=== PATIENT | male | born 1950 | race Caucasian/White ===

== ENCOUNTER 2024-10-04 21:28 | Observation (INO) ==
--- NOTE | 2024-10-04 21:41 | Emergency Department Note ---
ED Visit Note I was consulted by the Advanced Practice Provider, Leora Santiago PA-C. I performed a substantive portion of the visit. This includes aspects of: History: Patient is a 74-year-old male presenting with chest pain. Patient reports he was eating dinner when he suddenly felt lightheaded and dizzy and short of breath. Patient is visiting from [place] for a birthday dinner for his . He states he had sudden onset of chest pain and shortness of breath and did not feel well. He states it felt similar to his previous heart attack in which she had an LAD stent placed. MDM: - Laboratory workup interpreted by myself showed slight leukocytosis (WBC 11.64); hypokalemia (K 2.9); elevated creatinine (Cr 1.43 - unknown baseline); normal troponin; normal lipase; elevated TSH with normal T4 - EKG obtained at 23:24 interpreted by myself showed normal sinus rhythm. Rate 82 bpm. QT 396. No acute ischemic changes. - Viral respiratory panel negative - CXR negative for pneumonia, per my interpretation - CTA chest negative for PE. - Patient given 4 mg IV zofran and 1g IV acetaminophen on arrival to ER. Given 324 mg PO aspirin. Given 40 mEq PO potassium for electrolyte replacement. - Patient to be admitted to hospitalist service for further evaluation and management. .
[2024-10-04 22:00] LABS: iSTAT Creatinine 1.6 mg/dl (0.6-1.3); iSTAT Hemoglobin 14.6 g/dl (14.0-18.0); iSTAT Ionized Calcium 1.05 mmol/l (1.12-1.32); iSTAT Potassium 2.9 mmol/L (3.3-5.0)
--- NOTE | 2024-10-04 22:00 | Emergency Department Note ---
History of Present Illness General Chief complaint: Cardiac Assessment Stated complaint: Dizziness, Nausea, SOB History of Present Illness This 74-year-old male with a history coronary disease visiting from [place] to have dinner at the chronic he has with his for his 74th birthday presents ER complaining of chest pain, shortness of breath and not feeling right. He state symptoms feel similar to when he needed his stents for his LAD lesion. Patient denies fever, chills, cough, congestion, numbness, tingling, localized weakness. Home Medications Medication Instructions Recorded Confirmed Type amlodipine 5 mg-benazepril 40 mg 1 cap PO HS 10/04/24 10/04/24 History capsule aspirin 81 mg tablet 81 mg PO DAILY 10/04/24 10/04/24 History carvedilol 3.125 mg tablet 3.125 mg PO 2XD 10/04/24 10/04/24 History ezetimibe 10 mg tablet 10 mg 1XD 10/04/24 10/04/24 History pantoprazole 40 mg tablet,delayed 40 mg PO DAILY 10/04/24 10/04/24 History release rosuvastatin 40 mg tablet 40 mg HS 10/04/24 10/04/24 History triamterene 75 1 tab PO DAILY 10/04/24 10/04/24 History mg-hydrochlorothiazide 50 mg tablet Past Med/Surg History Problem List (Updated 10/04/24 @ 23:43 by Leora Santiago PA-C) Hypokalemia (Acute) Atypical chest pain (Acute) Social History Smoking Status: Never smoker Feels Safe at Home: Yes Review of Systems A total of 10 systems reviewed and were otherwise negative Physical Exam Vital Signs Vital Signs - 24 hr 10/04/24 21:35 10/04/24 21:35 10/04/24 21:35 Temperature 36.6 C Temperature Source Oral Pulse Rate 74 78 Pulse Rate [Apical] Respiratory Rate 14 Respiratory Effort / Characteristics Respiratory Depth Normal Respiratory Pattern Blood Pressure 157/97 H Blood Pressure [Right Arm] Blood Pressure Mean 117 Blood Pressure Mean [Right Arm] Blood Pressure Position [Right Arm] Pulse Oximetry 98 Oxygen Delivery Method Room Air Room Air Sepsis Recent Fever Within 48 Hours No Sepsis New/Unexplained Change in Mental Status No Sepsis Action Taken by Nursing No Action Required 10/04/24 22:19 10/04/24 23:27 Temperature Temperature Source Pulse Rate Pulse Rate [Apical] 83 86 Respiratory Rate 20 18 Respiratory Effort / Characteristics Non-Labored Spontaneous Respiratory Depth Normal Respiratory Pattern Regular Blood Pressure Blood Pressure [Right Arm] 134/99 141/84 H Blood Pressure Mean Blood Pressure Mean [Right Arm] 110 103 Blood Pressure Position [Right Arm] Semi-fowlers Pulse Oximetry 98 93 Oxygen Delivery Method Room Air Room Air Sepsis Recent Fever Within 48 Hours Sepsis New/Unexplained Change in Mental Status Sepsis Action Taken by Nursing VITALS: Vitals are noted on the nurse's note and reviewed by myself. Vital signs stable. GENERAL: White male, in no acute distress, nondiaphoretic, well-developed well- nourished. SKIN: Capillary reflex less than 2 seconds. HEENT: Normocephalic. PERRLA. EOMI. Nares patent. Mucous membranes moist. Neck is supple without nuchal rigidity. HEART: Regular rate and rhythm LUNGS: Clear to auscultation bilaterally without wheezes, rales or rhonchi. No retractions or accessory muscle use. ABDOMEN: Positive bowel sounds x 4. Normal tympanic percussion. Soft, nontender, without masses or organomegaly. Garcia sign negative. No guarding or rebound tenderness. no CVA tenderness MUSCULOSKELETAL: No gross musculoskeletal defects. NEURO: Patient was alert and oriented to person place and time. No focal neurological deficits. Course Administered Medications Discontinued Medications Aspirin (Aspirin Chew 324 Mg) 324 mg PO NOW STA Stop: 10/04/24 23:17 Last Admin: 10/04/24 23:25 Dose: 324 mg Documented By: Acetaminophen (Ofirmev) 1,000 mg in 100 mls @ 400 mls/hr IV NOW STA Stop: 10/04/24 22:20 Last Infusion: 10/04/24 23:24 Dose: Infused Documented By: Admin: 10/04/24 22:16 Dose: 400 mls/hr Documented By: YESENIA Ioversol (Optiray 320 125ml) 115 ml IV ONCE ONE Stop: 10/04/24 22:45 Last Admin: 10/04/24 22:44 Dose: 115 ml Documented By: RICARDO Ondansetron HCl (Ondansetron Inj 2 Mg/Ml 2 Ml Vial) 4 mg IV NOW STA Stop: 10/04/24 21:41 Last Admin: 10/04/24 22:12 Dose: 4 mg Documented By: BMK Potassium Chloride (Potassium Chloride Crtab 20 Meq Tabcr) 40 meq PO NOW STA Stop: 10/04/24 22:32 Last Admin: 10/04/24 23:24 Dose: 40 meq Documented By: Medical Decision Making Medical Records Attestation: I reviewed the patient's medical records. Home Medications Current Medication List: was personally reviewed by me Laboratory Data Attestation: I reviewed the patient's lab results. 10/04/24 21:30 10/04/24 22:18 Lab Results 10/04/24 10/04/24 10/04/24 Range/Units 21:30 21:48 21:56 WBC 11.64 H (4.8-10.8) K/ul RBC 4.79 (4.70-6.10) M/uL Hgb 15.4 (14.0-18.0) g/dl POC Hgb 14.6 (14.0-18.0) g/dl Hct 43.0 (42.0-52.0) % POC Hct 43 (42-52) % MCV 89.8 (80.0-100.0) fL MCH 32.2 (25.0-34.0) pg MCHC 35.8 (32.0-36.0) g/dL RDW Std Deviation 39.9 (36.4-46.3) fL RDW Coeff of [place] 12.3 (11.5-14.5) % Plt Count 184 (130-400) K/uL MPV 8.9 L (9.4-12.4) fL Immature Gran % (Auto) 0.3 % Neut % (Auto) 49.8 % Lymph % (Auto) 39.7 % Parke % (Auto) 8.4 % Eos % (Auto) 1.5 % Baso % (Auto) 0.3 % Neut # (Auto) 5.78 (1.40-6.50) K/uL Lymph # (Auto) 4.62 H (1.20-3.40) K/uL Parke # (Auto) 0.98 H (0.11-0.59) K/uL Eos # (Auto) 0.18 (0.00-0.50) K/uL Baso # (Auto) 0.04 (0.00-0.20) K/uL Immature Gran # (Auto) 0.04 (0.01-0.20) K/uL POC Sodium 135 (135-144) mmol/L Sodium 134 L (136-145) mmol/L POC Potassium 2.9 L (3.3-5.0) mmol/L Potassium TNP POC Chloride 98 L (101-112) mmol/L Chloride 97 L (98-107) mmol/L Carbon Dioxide 25 (21-32) mmol/L POC Total CO2 23 L (24-31) mmol/L Anion Gap 12 H (3-11) POC Anion Gap 19.0 (16-25) mmol/L POC BUN 27 H (7-18) mg/dl BUN 27 H (6-23) mg/dl Creatinine 1.43 H (0.6-1.4) mg/dl POC Creatinine 1.6 H (0.6-1.3) mg/dl Est Cr Clr Drug Dosing 51.9 ml/min eGFR 51.10 BUN/Creatinine Ratio 18.9 (10-20) Glucose 134 H (70-99(Fasting)) mg/dl POC Glucose (other) 139 H (70-99) mg/dl Calcium 9.4 (8.6-10.3) mg/dl POC Ioniz Calcium Yaima 1.05 L (1.12-1.32) mmol/l Magnesium 2.2 (1.7-2.4) mg/dl Total Bilirubin 0.5 (0.2-1.0) mg/dl AST TNP ALT 24 (7-52) U/L Alkaline Phosphatase 39 (34-104) U/L Troponin I High Sens 5.7 (0-20) pg/ml B-Natriuretic Peptide (0-100) pg/ml Total Protein 6.7 (6.0-8.3) gm/dl Albumin 4.2 (3.4-5.0) gm/dl Globulin 2.5 (2.5-4.0) gm/dl Albumin/Globulin Ratio 1.7 (0.9-2) Lipase 46 (11-82) U/L TSH 4.541 H (0.300-4.500) uIu/ml Free T4 1.33 (0.61-1.60) ng/dl Adenovirus (PCR) Not Detected (NotDetected) B. pertussis DNA (PCR) Not Detected (NotDetected) B.parapertussis DNA PCR Not Detected (NotDetected) C. pneumoniae DNA (PCR) Not Detected (NotDetected) Coronavirus OC43 (PCR) Not Detected (NotDetected) Coronavirus HKU1 (PCR) Not Detected (NotDetected) Coronavirus 229E (PCR) Not Detected (NotDetected) SARS-CoV-2 (PCR) Not Detected (NotDetected) Coronavirus NL63 (PCR) Not Detected (NotDetected) Human Metapneumovir PCR Not Detected (NotDetected) Influenza Type A (PCR) Not Detected (NotDetected) Influenza Type B (PCR) Not Detected (NotDetected) M. pneumoniae (PCR) Not Detected (NotDetected) Parainfluenza 1 (PCR) Not Detected (NotDetected) Parainfluenza 2 (PCR) Not Detected (NotDetected) Parainfluenza 3 (PCR) Not Detected (NotDetected) Parainfluenza 4 (PCR) Not Detected (NotDetected) RSV (PCR) Not Detected (NotDetected) Entero/Rhino (PCR) Not Detected (NotDetected) 10/04/24 10/04/24 Range/Units 21:58 22:18 WBC (4.8-10.8) K/ul RBC (4.70-6.10) M/uL Hgb (14.0-18.0) g/dl POC Hgb (14.0-18.0) g/dl Hct (42.0-52.0) % POC Hct (42-52) % MCV (80.0-100.0) fL MCH (25.0-34.0) pg MCHC (32.0-36.0) g/dL RDW Std Deviation (36.4-46.3) fL RDW Coeff of [place] (11.5-14.5) % Plt Count (130-400) K/uL MPV (9.4-12.4) fL Immature Gran % (Auto) % Neut % (Auto) % Lymph % (Auto) % Parke % (Auto) % Eos % (Auto) % Baso % (Auto) % Neut # (Auto) (1.40-6.50) K/uL Lymph # (Auto) (1.20-3.40) K/uL Parke # (Auto) (0.11-0.59) K/uL Eos # (Auto) (0.00-0.50) K/uL Baso # (Auto) (0.00-0.20) K/uL Immature Gran # (Auto) (0.01-0.20) K/uL POC Sodium (135-144) mmol/L Sodium (136-145) mmol/L POC Potassium (3.3-5.0) mmol/L Potassium 2.9 L POC Chloride (101-112) mmol/L Chloride (98-107) mmol/L Carbon Dioxide (21-32) mmol/L POC Total CO2 (24-31) mmol/L Anion Gap (3-11) POC Anion Gap (16-25) mmol/L POC BUN (7-18) mg/dl BUN (6-23) mg/dl Creatinine (0.6-1.4) mg/dl POC Creatinine (0.6-1.3) mg/dl Est Cr Clr Drug Dosing ml/min eGFR BUN/Creatinine Ratio (10-20) Glucose (70-99(Fasting)) mg/dl POC Glucose (other) (70-99) mg/dl Calcium (8.6-10.3) mg/dl POC Ioniz Calcium Yaima (1.12-1.32) mmol/l Magnesium (1.7-2.4) mg/dl Total Bilirubin (0.2-1.0) mg/dl AST 19 ALT (7-52) U/L Alkaline Phosphatase (34-104) U/L Troponin I High Sens (0-20) pg/ml B-Natriuretic Peptide 12 (0-100) pg/ml Total Protein (6.0-8.3) gm/dl Albumin (3.4-5.0) gm/dl Globulin (2.5-4.0) gm/dl Albumin/Globulin Ratio (0.9-2) Lipase (11-82) U/L TSH (0.300-4.500) uIu/ml Free T4 (0.61-1.60) ng/dl Adenovirus (PCR) (NotDetected) B. pertussis DNA (PCR) (NotDetected) B.parapertussis DNA PCR (NotDetected) C. pneumoniae DNA (PCR) (NotDetected) Coronavirus OC43 (PCR) (NotDetected) Coronavirus HKU1 (PCR) (NotDetected) Coronavirus 229E (PCR) (NotDetected) SARS-CoV-2 (PCR) (NotDetected) Coronavirus NL63 (PCR) (NotDetected) Human Metapneumovir PCR (NotDetected) Influenza Type A (PCR) (NotDetected) Influenza Type B (PCR) (NotDetected) M. pneumoniae (PCR) (NotDetected) Parainfluenza 1 (PCR) (NotDetected) Parainfluenza 2 (PCR) (NotDetected) Parainfluenza 3 (PCR) (NotDetected) Parainfluenza 4 (PCR) (NotDetected) RSV (PCR) (NotDetected) Entero/Rhino (PCR) (NotDetected) Imaging Data Attestation: I personally reviewed and interpreted this imaging study as follows: Radiologist's Impression: Chest X-Ray 10/04/24 21:41 Exam(s): XR CXR 1 VIEW EXAM: XR Chest, 1 View CLINICAL HISTORY: Chest pain, nonspecific. TECHNIQUE: Frontal view of the chest. COMPARISON: No relevant prior studies available. FINDINGS: Lungs: Slightly diminished lung volumes. No focal airspace consolidation. The pulmonary vasculature demonstrates no significant radiographic abnormality. Pleural space: Unremarkable. No pneumothorax. No large pleural effusion. Heart: Unremarkable. No cardiomegaly. Mediastinum: No significant abnormality identified. The trachea is midline. Bones/joints: Unremarkable. No acute fracture. IMPRESSION: Slightly diminished lung volumes without focal consolidation or acute cardiopulmonary process identified. Electronically signed by: Gibson Rich MD 10/04/24 23:36 PM Chest CTA 10/04/24 22:31 Exam(s): CTA CHEST IV Amt: 115 ml opti 320 EXAM: CT Angiography Chest With Intravenous Contrast CLINICAL HISTORY: Evaluate for possible PE. TECHNIQUE: Axial computed tomographic angiography images of the chest with intravenous contrast. CTDI is 42.64 mGy and DLP is 953.48 mGy-cm. Automated exposure control was utilized for the study. A dose lowering technique was utilized adhering to the principles of ALARA. MIP reconstructed images were created and reviewed. COMPARISON: No relevant prior studies available. FINDINGS: Limitations: There is respiratory artifact, which degrades image quality on multiple image slices. Pulmonary arteries: Accounting for respiratory artifact, there is no definite evidence for pulmonary embolism. Aorta: The thoracic aorta is normal in caliber without dissection or aneurysm. Lungs: Dependent areas of increased attenuation are noted involving both lungs. No focal airspace consolidation identified. Pleural space: Unremarkable. No significant effusion. No pneumothorax. Heart: The cardiac chambers are upper normal limits in size. Prominent coronary artery calcification noted in the LAD distribution. No pericardial effusion. Mediastinum: Small hiatal hernia. Bones/joints: No acute fracture. No dislocation. Soft tissues: Unremarkable. Lymph nodes: Unremarkable. No enlarged lymph nodes. IMPRESSION: 1. Accounting for respiratory artifact, there is no definite evidence for pulmonary embolism. 2. Dependent areas of increased attenuation are presumed subsegmental atelectasis. Dependent edema is considered less likely. No focal airspace consolidation identified. No pleural effusion or pneumothorax. Electronically signed by: Gibson Rich MD 10/04/24 23:33 PM [facility] [place] Narrative Prior records/ancillary studies reviewed. Triage Nursing notes reviewed. Additional history obtained from family. The patient's history was concerning for chest pain. Differential diagnosis: Etiologies such as cardiac ischemia, aortic dissection, pulmonary embolism, pneumonia, pneumothorax, musculoskeletal, infections, pericarditis, myocarditis, esophageal rupture, gastrointestinal, as well as others were entertained. Physical examination: As above. ER treatment provided: An order was placed for continuous cardiac monitoring. The monitor shows a rate of 60-100 with a sinus rhythm per my interpretation. Aspirin, Zofran, p.o. fluids, potassium On reassessment the patient felt better. Diagnostic interpretation by me: #1 the electrocardiogram was ordered for chest pain EKG: Normal sinus, minimal depression in lead II, possible check marking in the inferior and lateral leads, poor baseline, rate of 77. Impression normal sinus rhythm with subtle changes independently interpreted by myself I think arrhythmia is unlikely. EKG shows normal sinus rhythm with no interval abnormalities such as QT prolongation or WPW. There are no findings to suggest Brugada syndrome. Cardiac monitoring in the emergency department reveals no tachycardic or bradycardic dysrhythmia. Hypertrophic cardiomyopathy was considered but there are no clear historical elements pointing toward this. EKG is not suggestive. The QRS voltage is not extremely large and there are no suggestive Q waves. EKG #2 ordered for chest pain EKG: Normal sinus, normal intervals, no acute ST-T wave changes. Impression normal sinus rhythm independently interpreted by myself The labs Independently Interpreted by myself revealed hypokalemia and this is replaced orally. Normal magnesium Negative troponin Mild leukocytosis, negative [employer] Imaging studies: CT was reviewed and read by radiology as above HEART SCORE: Hx: high/mod/low suspicion: 1 ECG: ST depression/nonspecific changes/normal: 1 Age: Greater than 65/45-64/less than 45: 2 Risk factors: (Hypertension, hyperlipidemia, diabetes, coronary disease, tobacco use, cocaine use): 2 Troponin: Greater than 2 times normal limits/1-2 times normal limits/normal: 0 Total: 6 Consultation: A consultation was placed with the hospitalist. The case was discussed and diagnostics were reviewed. The patient was evaluated in the ER for further treatment. Exam and history seem consistent with chest pain with concerns for cardiac in etiology. Initial EKG showed some possible check marking in the inferior leads but repeat was normal. Patient was feeling better. He was reassessed multiple times. CTA was negative. Potassium was replaced. Heart score is moderate. He has had 2 stents in the past. Medicine was consulted and the case is discussed. Patient will be admitted to the medical service for further evaluation and workup. By the evaluation outlined above emergent etiologies such as aortic dissection, pulmonary embolism, pneumonia, pneumothorax, infections, pericarditis, myocarditis, gastrointestinal, as well as others were deemed relatively unlikely. The pt informed about the findings as listed above. All questions were answered and pleased with the treatment. The chart was completed utilizing [employer] Speech voice recognition software. Grammatical errors, random word insertions, pronoun errors, and incomplete sentences are an occassional consequence of this system due to software limitations, ambient noise, and hardware issues. Any formal questions or concerns about the content, text, or information contained within the body of this dictation should be directly addressed to the physician assistant analyst for clarification. Impression & Plan Atypical chest pain, Hypokalemia Discharge Plan Visit Data Chief Complaint: Cardiac Assessment Stated Complaint: Dizziness, Nausea, SOB ED Provider: Noemí Wong ED Midlevel Provider: Leora Santiago Discharge Problem: Atypical chest pain, Hypokalemia Patient Disposition: Admitted As Inpatient Condition: Good Forms Stand Alone Forms: [place] Prescriptions Prescriptions: No Action ezetimibe 10 mg tablet 10 mg 1XD carvedilol 3.125 mg tablet 3.125 mg PO 2XD pantoprazole 40 mg tablet,delayed release (DR/EC) 40 mg PO DAILY Adult Low Dose Aspirin 81 mg Tablet 81 mg PO DAILY triamterene-hydrochlorothiazid 75-50 mg tablet 1 tab PO DAILY rosuvastatin 40 mg tablet 40 mg HS amlodipine-benazepril 5-40 mg capsule 1 cap PO HS Referrals Referrals: PCP,NO [Physician] -
[2024-10-04] MEDS: ONDANSETRON INJ 2 MG/ML 2 ML VIAL IV STA (22:12)
[2024-10-04 22:13] LABS: Alanine Aminotransferase 24 U/L (7-52); Albumin Globulin Ratio 1.7 (0.9-2); Albumin Level 4.2 gm/dl (3.4-5.0); Alkaline Phosphatase 39 U/L (34-104); Anion Gap 12 (3-11); BUN Creatinine Ratio 18.9 (10-20); Bilirubin,Total 0.5 mg/dl (0.2-1.0); Blood Urea Nitrogen 27 mg/dl (6-23); Calcium 9.4 mg/dl (8.6-10.3); Carbon Dioxide 25 mmol/L (21-32); Chloride 97 mmol/L (98-107); Creatinine Clr Calc Pharmacy 51.9 ml/min; Globulin 2.5 gm/dl (2.5-4.0); Glucose 134 mg/dl (70-99(Fasting)); Lipase 46 U/L (11-82); Magnesium 2.2 mg/dl (1.7-2.4); Sodium 134 mmol/L (136-145); Total Protein 6.7 gm/dl (6.0-8.3)
[2024-10-04 22:16] LABS: Basophils # (auto) 0.04 K/uL (0.00-0.20); Basophils % (auto) 0.3 %; Eosinophils # (auto) 0.18 K/uL (0.00-0.50); Eosinophils % (auto) 1.5 %; Hemoglobin 15.4 g/dl (14.0-18.0); Immature Granulocytes # (auto) 0.04 K/uL (0.01-0.20); Immature Granulocytes % (auto) 0.3 %; Lymphocytes # (auto) 4.62 K/uL (1.20-3.40); Lymphocytes % (auto) 39.7 %; Mean Corpuscular Hemoglobin 32.2 pg (25.0-34.0); Mean Corpuscular Hgb Conc 35.8 g/dL (32.0-36.0); Mean Corpuscular Volume 89.8 fL (80.0-100.0); Mean Platelet Volume 8.9 fL (9.4-12.4); Monocytes # (auto) 0.98 K/uL (0.11-0.59); Monocytes % (auto) 8.4 %; Neutrophils # (auto) 5.78 K/uL (1.40-6.50); Neutrophils % (auto) 49.8 %; Platelet Count 184 K/uL (130-400); RDW Coefficient of Variation 12.3 % (11.5-14.5); RDW Standard Deviation 39.9 fL (36.4-46.3); Red Blood Count 4.79 M/uL (4.70-6.10); White Blood Count 11.64 K/ul (4.8-10.8)
[2024-10-04] MEDS: ACETAMINOPHEN 1,000 MG/100 ML VIAL IV STA (22:16)
[2024-10-04 22:22] LABS: Troponin I High Sensitivity 5.7 pg/ml (0-20)
[2024-10-04 22:30] LABS: Thyroid Stimulating Hormone 4.541 uIu/ml (0.300-4.500)
[2024-10-04] MEDS: OPTIRAY 320 125ml IV ONE (22:44)
[2024-10-04 22:52] LABS: Potassium 2.9 mmol/L (3.5-5.1)
[2024-10-04 23:01] LABS: Adenovirus PCR Not Detected (NotDetected); Bordetella parapertussis PCR Not Detected (NotDetected); Bordetella pertussis PCR Not Detected (NotDetected); Chlamydia pneumoniae PCR Not Detected (NotDetected); Coronavirus 229E PCR Not Detected (NotDetected); Coronavirus CoV-2 (COVID19)PCR Not Detected (NotDetected); Coronavirus HKU1 PCR Not Detected (NotDetected); Coronavirus NL63 PCR Not Detected (NotDetected); Coronavirus OC43PCR Not Detected (NotDetected); Human Metapneumovirus PCR Not Detected (NotDetected); Influenza A PCR Not Detected (NotDetected); Influenza B PCR Not Detected (NotDetected); Mycoplasma pneumoniae PCR Not Detected (NotDetected); Parainfluenza Virus 1 PCR Not Detected (NotDetected); Parainfluenza Virus 2 PCR Not Detected (NotDetected); Parainfluenza Virus 3 PCR Not Detected (NotDetected); Parainfluenza Virus 4 PCR Not Detected (NotDetected); Respiratory Syncytial VirusPCR Not Detected (NotDetected); Rhinovirus/Enterovirus PCR Not Detected (NotDetected)
[2024-10-04 23:08] LABS: T4 Free Thyroxine 1.33 ng/dl (0.61-1.60)
[2024-10-04] MEDS: POTASSIUM CHLORIDE CRTAB 20 MEQ TABCR PO STA (23:24)
[2024-10-04] MEDS: ASPIRIN CHEW 324 MG PO STA (23:25)
--- NOTE | 2024-10-04 23:34 | CT Scan Report ---
Exam(s): CTA CHEST IV Amt: 115 ml opti 320 EXAM: CT Angiography Chest With Intravenous Contrast CLINICAL HISTORY: Evaluate for possible PE. TECHNIQUE: Axial computed tomographic angiography images of the chest with intravenous contrast. CTDI is 42.64 mGy and DLP is 953.48 mGy-cm. Automated exposure control was utilized for the study. A dose lowering technique was utilized adhering to the principles of ALARA. MIP reconstructed images were created and reviewed. COMPARISON: No relevant prior studies available. FINDINGS: Limitations: There is respiratory artifact, which degrades image quality on multiple image slices. Pulmonary arteries: Accounting for respiratory artifact, there is no definite evidence for pulmonary embolism. Aorta: The thoracic aorta is normal in caliber without dissection or aneurysm. Lungs: Dependent areas of increased attenuation are noted involving both lungs. No focal airspace consolidation identified. Pleural space: Unremarkable. No significant effusion. No pneumothorax. Heart: The cardiac chambers are upper normal limits in size. Prominent coronary artery calcification noted in the LAD distribution. No pericardial effusion. Mediastinum: Small hiatal hernia. Bones/joints: No acute fracture. No dislocation. Soft tissues: Unremarkable. Lymph nodes: Unremarkable. No enlarged lymph nodes. IMPRESSION: 1. Accounting for respiratory artifact, there is no definite evidence for pulmonary embolism. 2. Dependent areas of increased attenuation are presumed subsegmental atelectasis. Dependent edema is considered less likely. No focal airspace consolidation identified. No pleural effusion or pneumothorax. Electronically signed by: Gibson Rich MD 10/04/24 23:33 PM
--- NOTE | 2024-10-04 23:37 | XRay Report ---
Exam(s): XR CXR 1 VIEW EXAM: XR Chest, 1 View CLINICAL HISTORY: Chest pain, nonspecific. TECHNIQUE: Frontal view of the chest. COMPARISON: No relevant prior studies available. FINDINGS: Lungs: Slightly diminished lung volumes. No focal airspace consolidation. The pulmonary vasculature demonstrates no significant radiographic abnormality. Pleural space: Unremarkable. No pneumothorax. No large pleural effusion. Heart: Unremarkable. No cardiomegaly. Mediastinum: No significant abnormality identified. The trachea is midline. Bones/joints: Unremarkable. No acute fracture. IMPRESSION: Slightly diminished lung volumes without focal consolidation or acute cardiopulmonary process identified. Electronically signed by: Gibson Rich MD 10/04/24 23:36 PM
--- NOTE | 2024-10-05 00:33 | History & Physical Report ---
Date of Service October 05, 2024 Assessment & Plan (1) Pre-syncope: (2) Atypical chest pain: (3) Hypokalemia: (4) Presence of stent in LAD coronary artery: (5) Hypertension: (6) Shortness of breath: (7) Left shoulder pain: Plan Presyncope/shortness of breath/atypical chest pain/CAD/history of LAD stent x 2 in 2016- The patient will be admitted to telemetry for serial cardiac enzymes, serial EKG's, cardiac rhythm monitoring and a 2-D echocardiogram with Dopplers. Initial troponin 5.7 with follow-up pending He was given aspirin 324 mg, and will continue aspirin 81 mg every morning LAD stents x 2 in 2016 Did well until 2019, when he had a follow-up cardiac catheterization, which did not require any further intervention Continue carvedilol 3.125 mg p.o. twice daily, is due for his evening dose now. Hold triamterene/HCTZ in the a.m., due to hypokalemia and renal insufficiency and relatively low blood pressure Hold amlodipine/benazepril 5/40, usually taken at bedtime, due to relatively low blood pressure Patient did have a negative respiratory BioFire test Chest x-ray was negative CTA chest negative for PE Consult cardiology Hypokalemia/renal insufficiency- Holding triamterene/HCTZ 75/50 as noted Given Klor-Con 40 mill equivalents p.o. by the ED Creatinine 1.43, with unknown baseline Give NSS at 80 mL/h x 500 mL Repeat renal function panel in the a.m. Magnesium level 2.2 and will be repeated in the a.m. as well Hyperlipidemia- Continue rosuvastatin 40 mg at bedtime and Zetia 10 mg in the a.m. GERD- Continue pantoprazole 40 mg every morning Acute worsening of chronic left shoulder pain- MRI of left shoulder with significant abnormal findings as noted in imaging above Patient does have a pending orthopedic appointment at home at [place], and can use support as needed and until he can be seen there History of Present Illness Chief Complaint: The patient was visiting [place] from his home in [place], and was out having dinner at a local eatery with family, when he developed acute onset of dizziness, chest pain, shortness of breath, nausea, and felt briefly like he was going to pass out until he sat down on the sofa. He reports that he had eaten oysters and a half shell, and had a few sips of red wine, and shortly thereafter developed the symptoms above. Primary Care Provider: Paula Bartholomew MD The patient is a 74-year-old male with a past medical history including CAD status post LAD stent x 2 in 2016, hypertension, hyperlipidemia, GERD, and prostate cancer. He was visiting [place], was at a local eatery, had oysters and potato with few sips of red wine, and shortly thereafter developed symptoms as noted above. He has a significant history of coronary artery d isease as noted, and due to the symptoms, he was brought to the emergency department for assessment. [facility]. Patient does also report that he has had an acute worsening of chronic left shoulder pain. Allergies Allergy/AdvReac Type Severity Reaction Status Date / Time No Known Allergies Allergy Unverified 10/05/24 01:57 Home Medications Medication Instructions Recorded Confirmed Type amlodipine 5 mg-benazepril 40 mg 1 cap PO HS 10/04/24 10/04/24 History capsule aspirin 81 mg tablet 81 mg PO DAILY 10/04/24 10/04/24 History carvedilol 3.125 mg tablet 3.125 mg PO 2XD 10/04/24 10/04/24 History ezetimibe 10 mg tablet 10 mg 1XD 10/04/24 10/04/24 History pantoprazole 40 mg tablet,delayed 40 mg PO DAILY 10/04/24 10/04/24 History release rosuvastatin 40 mg tablet 40 mg HS 10/04/24 10/04/24 History triamterene 75 1 tab PO DAILY 10/04/24 10/04/24 History mg-hydrochlorothiazide 50 mg tablet Past Med/Surg History Problem List (Updated 10/05/24 @ 06:36 by Ildefonso Velasco MD) Left shoulder pain Pre-syncope Shortness of breath Dizziness Hypokalemia (Acute) Atypical chest pain (Acute) Medical History (Updated 10/05/24 @ 06:36 by Ildefonso Velasco MD) GERD (gastroesophageal reflux disease) Hypertension Hyperlipidemia LDL goal <70 Prostate cancer Presence of stent in LAD coronary artery CAD in [place] artery Surgical History (Updated 10/05/24 @ 06:22 by Ildefonso Velasco MD) History of tonsillectomy History of appendectomy Hx of inguinal hernia repair Social History Smoking Status: Never smoker Hx Alcohol Use: No Hx Substance Use: No Preferred Language: Cymraes Communication Ability: Effective Electrician Ship Required: No Beliefs That Will Affect Care: None Current Living Situation: Spouse Other Information That Helps Us Care for You: No Feels Safe at Home: Yes Safety Concerns: Feels Safe At This Time Assistive Devices: None Review of Systems Review of Systems: The patient denies palpitations, cough, lower extremity swelling, sore throat, fevers, chills, vomiting, diarrhea, constipation, abdominal pain, pelvic pain, blood in urine or stool, dysuria, urinary frequency or urgency, shirley loss, loss of consciousness, rash, abnormal bruising or bleeding, focal weakness, numbness or tingling in arms or legs, generalized arthralgias or myalgias, back or neck pain, or night sweats. The review of systems is otherwise negative other than for that already noted above, and at least 10 systems have been reviewed. Physical Exam Physical Exam: The patient is awake, alert and oriented 3, well developed and well nourished, normocephalic and atraumatic, lying in bed and in no acute distress. HEENT--PERRL, EOMI, mucous membranes and oropharynx mildly dry. Neck--supple. No JVD. No bruits. Thyroid normal, trachea midline, no adenopathy. Heart--normal S1 and S2. No murmurs, rubs or gallops. Lungs--clear bilaterally, no respiratory distress, no accessory muscle use. Abdomen--normal bowel sounds and soft. Nontender. Nondistended. Extremities--No edema. Dermatologic--normal skin turgor, normal color, no abnormal lymph nodes, no rash. Neurologic--cranial nerves II through XII grossly intact. Rheumatologic--normal range of motion. Psychiatric--normal affect. Results & Data Results & Data Vital Signs (Past 12 Hours) Vital Signs Temp Pulse Pulse Resp BP BP Pulse Ox 10/05/24 00:26 84 18 128/79 95 10/04/24 23:27 86 18 141/84 H 93 10/04/24 22:19 83 20 134/99 98 10/04/24 21:35 78 10/04/24 21:35 10/04/24 21:35 36.6 C 74 14 157/97 H 98 O2 Del Method 10/05/24 00:26 10/04/24 23:27 Room Air 10/04/24 22:19 Room Air 10/04/24 21:35 10/04/24 21:35 Room Air 10/04/24 21:35 Room Air Laboratory Results Laboratory Results WBC 11.64 K/ul (4.8-10.8) H 10/04/24 21:30 RBC 4.79 M/uL (4.70-6.10) 10/04/24 21:30 Hgb 15.4 g/dl (14.0-18.0) 10/04/24 21:30 POC Hgb 14.6 g/dl (14.0-18.0) 10/04/24 21:48 Hct 43.0 % (42.0-52.0) 10/04/24 21:30 POC Hct 43 % (42-52) 10/04/24 21:48 MCV 89.8 fL (80.0-100.0) 10/04/24 21:30 MCH 32.2 pg (25.0-34.0) 10/04/24 21:30 MCHC 35.8 g/dL (32.0-36.0) 10/04/24 21:30 RDW Std Deviation 39.9 fL (36.4-46.3) 10/04/24 21:30 RDW Coeff of [place] 12.3 % (11.5-14.5) 10/04/24 21:30 Plt Count 184 K/uL (130-400) 10/04/24 21:30 MPV 8.9 fL (9.4-12.4) L 10/04/24 21:30 Immature Gran % (Auto) 0.3 % 10/04/24 21:30 Neut % (Auto) 49.8 % 10/04/24 21:30 Lymph % (Auto) 39.7 % 10/04/24 21:30 [place] % (Auto) 8.4 % 10/04/24 21:30 Eos % (Auto) 1.5 % 10/04/24 21:30 Baso % (Auto) 0.3 % 10/04/24 21:30 Neut # (Auto) 5.78 K/uL (1.40-6.50) 10/04/24 21:30 Lymph # (Auto) 4.62 K/uL (1.20-3.40) H 10/04/24 21:30 [place] # (Auto) 0.98 K/uL (0.11-0.59) H 10/04/24 21:30 Eos # (Auto) 0.18 K/uL (0.00-0.50) 10/04/24 21:30 Baso # (Auto) 0.04 K/uL (0.00-0.20) 10/04/24 21:30 Immature Gran # (Auto) 0.04 K/uL (0.01-0.20) 10/04/24 21:30 POC Sodium 135 mmol/L (135-144) 10/04/24 21:48 Sodium 134 mmol/L (136-145) L 10/04/24 21:30 POC Potassium 2.9 mmol/L (3.3-5.0) L 10/04/24 21:48 Potassium 2.9 mmol/L (3.5-5.1) L 10/04/24 22:18 POC Chloride 98 mmol/L (101-112) L 10/04/24 21:48 Chloride 97 mmol/L (98-107) L 10/04/24 21:30 Carbon Dioxide 25 mmol/L (21-32) 10/04/24 21:30 POC Total CO2 23 mmol/L (24-31) L 10/04/24 21:48 Anion Gap 12 (3-11) H 10/04/24 21:30 POC Anion Gap 19.0 mmol/L (16-25) 10/04/24 21:48 POC BUN 27 mg/dl (7-18) H 10/04/24 21:48 BUN 27 mg/dl (6-23) H 10/04/24 21:30 Creatinine 1.43 mg/dl (0.6-1.4) H 10/04/24 21:30 POC Creatinine 1.6 mg/dl (0.6-1.3) H 10/04/24 21:48 Est Cr Clr Drug Dosing 51.9 ml/min 10/04/24 21:30 eGFR 51.10 10/04/24 21:30 BUN/Creatinine Ratio 18.9 (10-20) 10/04/24 21:30 Glucose 134 mg/dl (70-99(Fasting)) H 10/04/24 21:30 POC Glucose (other) 139 mg/dl (70-99) H 10/04/24 21:48 Calcium 9.4 mg/dl (8.6-10.3) 10/04/24 21:30 POC Ioniz Calcium Yaima 1.05 mmol/l (1.12-1.32) L 10/04/24 21:48 Magnesium 2.2 mg/dl (1.7-2.4) 10/04/24 21:30 Total Bilirubin 0.5 mg/dl (0.2-1.0) 10/04/24 21:30 AST 19 U/L (13-39) 10/04/24 22:18 ALT 24 U/L (7-52) 10/04/24 21:30 Alkaline Phosphatase 39 U/L (34-104) 10/04/24 21:30 Troponin I High Sens 7.6 pg/ml (0-20) 10/05/24 00:52 B-Natriuretic Peptide 12 pg/ml (0-100) 10/04/24 21:58 Total Protein 6.7 gm/dl (6.0-8.3) 10/04/24 21:30 Albumin 4.2 gm/dl (3.4-5.0) 10/04/24 21:30 Globulin 2.5 gm/dl (2.5-4.0) 10/04/24 21:30 Albumin/Globulin Ratio 1.7 (0.9-2) 10/04/24 21:30 Lipase 46 U/L (11-82) 10/04/24 21:30 TSH 4.541 uIu/ml (0.300-4.500) H 10/04/24 21:30 Free T4 1.33 ng/dl (0.61-1.60) 10/04/24 21:30 Adenovirus (PCR) Not Detected (NotDetected) 10/04/24 21:56 B. pertussis DNA (PCR) Not Detected (NotDetected) 10/04/24 21:56 B.parapertussis DNA PCR Not Detected (NotDetected) 10/04/24 21:56 C. pneumoniae DNA (PCR) Not Detected (NotDetected) 10/04/24 21:56 Coronavirus OC43 (PCR) Not Detected (NotDetected) 10/04/24 21:56 Coronavirus HKU1 (PCR) Not Detected (NotDetected) 10/04/24 21:56 Coronavirus 229E (PCR) Not Detected (NotDetected) 10/04/24 21:56 SARS-CoV-2 (PCR) Not Detected (NotDetected) 10/04/24 21:56 Coronavirus NL63 (PCR) Not Detected (NotDetected) 10/04/24 21:56 Human Metapneumovir PCR Not Detected (NotDetected) 10/04/24 21:56 Influenza Type A (PCR) Not Detected (NotDetected) 10/04/24 21:56 Influenza Type B (PCR) Not Detected (NotDetected) 10/04/24 21:56 M. pneumoniae (PCR) Not Detected (NotDetected) 10/04/24 21:56 Parainfluenza 1 (PCR) Not Detected (NotDetected) 10/04/24 21:56 Parainfluenza 2 (PCR) Not Detected (NotDetected) 10/04/24 21:56 Parainfluenza 3 (PCR) Not Detected (NotDetected) 10/04/24 21:56 Parainfluenza 4 (PCR) Not Detected (NotDetected) 10/04/24 21:56 RSV (PCR) Not Detected (NotDetected) 10/04/24 21:56 Entero/Rhino (PCR) Not Detected (NotDetected) 10/04/24 21:56 Impressions Chest X-Ray 10/04/24 21:41 Exam(s): XR CXR 1 VIEW EXAM: XR Chest, 1 View CLINICAL HISTORY: Chest pain, nonspecific. TECHNIQUE: Frontal view of the chest. COMPARISON: No relevant prior studies available. FINDINGS: Lungs: Slightly diminished lung volumes. No focal airspace consolidation. The pulmonary vasculature demonstrates no significant radiographic abnormality. Pleural space: Unremarkable. No pneumothorax. No large pleural effusion. Heart: Unremarkable. No cardiomegaly. Mediastinum: No significant abnormality identified. The trachea is midline. Bones/joints: Unremarkable. No acute fracture. IMPRESSION: Slightly diminished lung volumes without focal consolidation or acute cardiopulmonary process identified. Electronically signed by: Gibson Rich MD 10/04/24 23:36 PM Chest CTA 10/04/24 22:31 Exam(s): CTA CHEST IV Amt: 115 ml opti 320 EXAM: CT Angiography Chest With Intravenous Contrast CLINICAL HISTORY: Evaluate for possible PE. TECHNIQUE: Axial computed tomographic angiography images of the chest with intravenous contrast. CTDI is 42.64 mGy and DLP is 953.48 mGy-cm. Automated exposure control was utilized for the study. A dose lowering technique was utilized adhering to the principles of ALARA. MIP reconstructed images were created and reviewed. COMPARISON: No relevant prior studies available. FINDINGS: Limitations: There is respiratory artifact, which degrades image quality on multiple image slices. Pulmonary arteries: Accounting for respiratory artifact, there is no definite evidence for pulmonary embolism. Aorta: The thoracic aorta is normal in caliber without dissection or aneurysm. Lungs: Dependent areas of increased attenuation are noted involving both lungs. No focal airspace consolidation identified. Pleural space: Unremarkable. No significant effusion. No pneumothorax. Heart: The cardiac chambers are upper normal limits in size. Prominent coronary artery calcification noted in the LAD distribution. No pericardial effusion. Mediastinum: Small hiatal hernia. Bones/joints: No acute fracture. No dislocation. Soft tissues: Unremarkable. Lymph nodes: Unremarkable. No enlarged lymph nodes. IMPRESSION: 1. Accounting for respiratory artifact, there is no definite evidence for pulmonary embolism. 2. Dependent areas of increased attenuation are presumed subsegmental atelectasis. Dependent edema is considered less likely. No focal airspace consolidation identified. No pleural effusion or pneumothorax. Electronically signed by: Gibson Rich MD 10/04/24 23:33 PM Shoulder MRI 10/05/24 00:56 EXAM: MR shoulder LT wo con CLINICAL HISTORY: patient was having dinner when sudden onset of lightheadedness. dizzy. sob. came to hospital for cardiac assessment. injured shoulder 2 to 3 weeks ago moving furniture. has been waiting for insurance to approve MRI. ordered tonight through the ED. room B7. 165 images TECHNIQUE: Multisequential and multiplanar images of the left shoulder were submitted for review without contrast. COMPARISON: None. FINDINGS: TENDONS AND MUSCLES: Full thickness anterior supraspinatus and superior subscapularis insertional tear, measuring 11 mm herbie-posteriorly by 5 mm transversely. The infraspinatus tendon is intact, without tendinosis, surface fraying or focal tear. Normal infraspinatus muscle without edema or atrophy. Medial subluxation of the bicipital tendon out of the bicipital groove. Mild tendinosis of the bicipital tendon in its mid part. Normal intra-articular segment of the long bicipital tendon. Normal teres minor tendon, without tendinosis, surface fraying, or focal tear. The teres minor muscle demonstrates mild oedema without atrophy. The deltoid muscle is within normal limits in signal without edema or atrophy. LABRUM: Normal. OSSEOUS STRUCTURES: Moderate acromio-clavicular joint osteoarthrosis. Bone marrow signal is otherwise within normal limits without bone contusion, fracture or AVN. SOFT TISSUES: Moderate amount of fluid in subacromial-subdeltoid bursa. Mild gleno-humeral joint effusion with fluid extending into inferior axillary recess. Moderate amount of fluid in subcoracoid bursa. There are no intraarticular osteochondral bodies. There are no soft tissue masses. Normal subcutaneous adipose space. IMPRESSION: 1. Full thickness anterior supraspinatus and superior subscapularis insertional tear as described. 2. Medial subluxation with mild tendinosis of the bicipital tendon. 3. Moderate acromio-clavicular joint osteoarthrosis. 4. Moderate subacromial-subdeltoid and subcoracoid bursal fluid. 5. Mild gleno-humeral joint effusion. Electronically signed by Tez Carlisle 10-05-2024 03:06 AM Code Status & VTE Plan Code Status Full code VTE Prophylaxis Plan VTE Prophylaxis will be ordered: Yes PG Care Time/CCT Total # of Minutes Spent Total Time Spent with Patient: Total time spent is greater than 50% in coordination of care (as documented) at patient's floor/unit and/or counseling patient: Coding Level of Care Code 90059 INT INP/OBS CARE 3/75MIN Diagnoses Pre-syncope R55 Atypical chest pain R07.89 Hypokalemia E87.6 Presence of stent in LAD coronary artery Z95.5 Hypertension I10 Shortness of breath R06.02 Left shoulder pain M25.512
[2024-10-05] MEDS ORDERED: Patient's ALLERGY Info needs ENTERED STA (01:06)
[2024-10-05] MEDS ORDERED: ONDANSETRON INJ 2 MG/ML 2 ML VIAL IV PRN (02:05)
[2024-10-05] MEDS: ROSUVASTATIN CALCIUM 20 MG TAB PO STA (02:47)
[2024-10-05] MEDS: carvediloL 3.125 MG TAB PO ONE (02:48)
[2024-10-05] MEDS: Patient's ALLERGY Info needs ENTERED STA (02:49)
[2024-10-05] MEDS: SODIUM CHLORIDE 0.9% 500 ML IV SCH (02:49)
--- NOTE | 2024-10-05 03:07 | Magnetic Resonance Report ---
EXAM: MR shoulder LT wo con CLINICAL HISTORY: patient was having dinner when sudden onset of lightheadedness. dizzy. sob. came to hospital for cardiac assessment. injured shoulder 2 to 3 weeks ago moving furniture. has been waiting for insurance to approve MRI. ordered tonight through the ED. room B7. 165 images TECHNIQUE: Multisequential and multiplanar images of the left shoulder were submitted for review without contrast. COMPARISON: None. FINDINGS: TENDONS AND MUSCLES: Full thickness anterior supraspinatus and superior subscapularis insertional tear, measuring 11 mm herbie-posteriorly by 5 mm transversely. The infraspinatus tendon is intact, without tendinosis, surface fraying or focal tear. Normal infraspinatus muscle without edema or atrophy. Medial subluxation of the bicipital tendon out of the bicipital groove. Mild tendinosis of the bicipital tendon in its mid part. Normal intra-articular segment of the long bicipital tendon. Normal teres minor tendon, without tendinosis, surface fraying, or focal tear. The teres minor muscle demonstrates mild oedema without atrophy. The deltoid muscle is within normal limits in signal without edema or atrophy. LABRUM: Normal. OSSEOUS STRUCTURES: Moderate acromio-clavicular joint osteoarthrosis. Bone marrow signal is otherwise within normal limits without bone contusion, fracture or AVN. SOFT TISSUES: Moderate amount of fluid in subacromial-subdeltoid bursa. Mild gleno-humeral joint effusion with fluid extending into inferior axillary recess. Moderate amount of fluid in subcoracoid bursa. There are no intraarticular osteochondral bodies. There are no soft tissue masses. Normal subcutaneous adipose space. IMPRESSION: 1. Full thickness anterior supraspinatus and superior subscapularis insertional tear as described. 2. Medial subluxation with mild tendinosis of the bicipital tendon. 3. Moderate acromio-clavicular joint osteoarthrosis. 4. Moderate subacromial-subdeltoid and subcoracoid bursal fluid. 5. Mild gleno-humeral joint effusion. Electronically signed by Tez Carlisle 10-05-2024 03:06 AM
[2024-10-05 03:19] VITALS: RESP 18
[2024-10-05 07:36] LABS: Basophils # (auto) 0.03 K/uL (0.00-0.20); Basophils % (auto) 0.4 %; Eosinophils # (auto) 0.17 K/uL (0.00-0.50); Eosinophils % (auto) 2.2 %; Hematocrit (blood only) 41.4 % (42.0-52.0); Hemoglobin 14.6 g/dl (14.0-18.0); Immature Granulocytes # (auto) 0.03 K/uL (0.01-0.20); Immature Granulocytes % (auto) 0.4 %; Lymphocytes # (auto) 2.71 K/uL (1.20-3.40); Lymphocytes % (auto) 35.2 %; Mean Corpuscular Hgb Conc 35.3 g/dL (32.0-36.0); Mean Corpuscular Volume 90.8 fL (80.0-100.0); Mean Platelet Volume 8.5 fL (9.4-12.4); Monocytes # (auto) 0.88 K/uL (0.11-0.59); Monocytes % (auto) 11.4 %; Neutrophils # (auto) 3.87 K/uL (1.40-6.50); Neutrophils % (auto) 50.4 %; Platelet Count 161 K/uL (130-400); RDW Coefficient of Variation 12.3 % (11.5-14.5); Red Blood Count 4.56 M/uL (4.70-6.10); White Blood Count 7.69 K/ul (4.8-10.8)
[2024-10-05 07:52] LABS: Albumin Level 3.6 gm/dl (3.4-5.0); BUN Creatinine Ratio 19.5 (10-20); Calcium 8.8 mg/dl (8.6-10.3); Magnesium 2.2 mg/dl (1.7-2.4); Phosphorus 3.8 mg/dl (2.5-4.9); Potassium 3.7 mmol/L (3.5-5.1)
[2024-10-05] MEDS: carvediloL 3.125 MG TAB PO SCH (08:56)
[2024-10-05] MEDS: EZETIMIBE 10 MG TAB PO SCH (08:56)
[2024-10-05] MEDS: PANTOprazole 40 MG TAB PO SCH (08:56)
[2024-10-05] MEDS: ASPIRIN 81 MG ECTAB PO SCH (08:56)
--- NOTE | 2024-10-05 10:55 | XCELERA ---
[id number] \\[id number]
--- NOTE | 2024-10-05 10:59 | Cardiology Consultation ---
Date of Consultation October 05, 2024 Assessment & Plan (1) Syncope: (2) Hypokalemia: Plan Past Cardiac History: 1. 2016 PTCA with drug-eluting stents placed to the proximal and mid LAD by Dr. Mcknight 2. Cardiac catheterization by Dr. Mcknight on April 04, 2019 for evaluation of chest pain which revealed patent previously placed stents to the proximal and mid LAD. There were mild luminal irregularities of the circumflex and right coronary arteries respectively. 3. Pharmacologic nuclear stress test on June 18, 2021 which did not reveal any obvious areas of ischemia or infarction and the overall ejection fraction was well-preserved in the range of 68% with normal wall motion. 4. Echocardiogram on November 10, 2023 at [facility] with preserved LV systolic function with LVEF estimated to be in the range of 50 to 55%. Mild TR 5. HTN 6. HLD 7. Symptomatic PVCs Mr. Reynolds's episode is consistent with vasovagal syncope. It's possible that his significant hypokalemia contributed. He notes that he has had hypokalemia in the past and he does take a diuretic, but has not needed supplementation in some years. He denies any changes in his eating habits lately. He should be discharged with oral supplemental potassium. His workup has been reassuring. He does have non specific ST abnormalities on EKG but on comparison to a 2019 EKG in the [facility] system, it is not appreciably different. His HS troponins have remained normal. His CTA did not evidence any PE. He has had no events on quality assurance monitor final and is in sinus rhythm. He is completely symptom free at this point. His blood pressure is controlled. He does not need further acute workup but I will defer any further outpatient workup to his usual distribution technician, Dr. Sanches. He should see him in a week or so for follow up. I recommended he get up and walk the halls a bit. If he is feeling well with that he can be discharged today. History of Present Illness Attending Physician: Mimi Deshpande MD History of Present Illness Mr. Reynolds presented last evening to the ED after an episode of syncope. He is from the [place] area but was in town visiting family and having dinner at [facility] to celebrate his '[facility] birthday. Toward the end of dinner he became hot, sweaty, dyspneic and felt that he would faint. He got up to go out to the lounge and when he sat on the couch he fainted. An ambulance was called. He denies any preceding illnesses or decrease in PO intake. He notes that he had an episode like this once before in 2019 and subsequently had a cardiac catheterization which showed no significant obstruction and patent stents. He did not have the same symptoms prior to his cath in 2016 when he had the stents placed, that was preceded by dyspnea with exertion. In particular he noticed that he was getting more sob while playing golf. He feels back to his normal self today. He denies any sob or chest pain. No palpitations. No edema. Allergies Allergy/AdvReac Type Severity Reaction Status Date / Time No Known Allergies Allergy Unverified 10/05/24 01:57 Home Medications Medication Instructions Recorded Confirmed Type amlodipine 5 mg-benazepril 40 mg 1 cap PO HS 10/04/24 10/04/24 History capsule aspirin 81 mg tablet 81 mg PO DAILY 10/04/24 10/04/24 History carvedilol 3.125 mg tablet 3.125 mg PO 2XD 10/04/24 10/04/24 History ezetimibe 10 mg tablet 10 mg 1XD 10/04/24 10/04/24 History pantoprazole 40 mg tablet,delayed 40 mg PO DAILY 10/04/24 10/04/24 History release rosuvastatin 40 mg tablet 40 mg HS 10/04/24 10/04/24 History triamterene 75 1 tab PO DAILY 10/04/24 10/04/24 History mg-hydrochlorothiazide 50 mg tablet Patient History Medical History GERD (gastroesophageal reflux disease) Hypertension Hyperlipidemia LDL goal <70 Prostate cancer Presence of stent in LAD coronary artery CAD in [place] artery Surgical History History of tonsillectomy History of appendectomy Hx of inguinal hernia repair Social History Smoking Status: Never smoker Hx Alcohol Use: No Hx Substance Use: No Preferred Language: Senegalese Communication Ability: Effective Strike Planning Applications Required: No Beliefs That Will Affect Care: None Current Living Situation: Spouse Other Information That Helps Us Care for You: No Feels Safe at Home: Yes Safety Concerns: Feels Safe At This Time Assistive Devices: None Review of Systems Review of Systems: All systems reviewed & are unremarkable except as noted in HPI & below Physical Exam Constitutional: WD/WN, vitals as above Respiratory: normal respiratory effort, lungs clear to auscultation Cardiovascular: RRR, no murmur, no edema Skin: no rashes, warm and dry Neurologic: moves all extremities and awake Psychiatric: A+Ox3, euthymic affect Results & Data Vital Signs (Past 12 Hours) Vital Signs Temp Pulse Pulse Resp BP Pulse Ox O2 Del Method 10/05/24 09:10 72 10/05/24 07:46 36.5 C 65 18 121/76 97 Room Air 10/05/24 03:18 36.6 C 77 18 119/79 94 Room Air 10/05/24 02:05 36.7 C 84 16 129/84 94 Room Air 10/05/24 02:02 81 10/05/24 02:00 Room Air 10/05/24 02:00 36.7 C 84 16 129/84 94 Room Air 10/05/24 01:47 Room Air 10/05/24 01:05 84 18 127/80 96 10/05/24 00:26 84 18 128/79 95 10/04/24 23:27 86 18 141/84 H 93 Room Air (1) Syncope Syncope type: vasovagal syncope Qualified Code(s): R55 - Syncope and collapse
[2024-10-05] MEDS: ACETAMINOPHEN 325 MG TAB PO PRN (11:18)
[2024-10-05 11:19] VITALS: BP 114/73; PULSE 75; TEMP 97.9; O2SAT 96
--- NOTE | 2024-10-05 12:53 | Discharge Summary ---
Date of Service October 05, 2024 Admission HPI Per Admitting Provider The patient is a 74-year-old male with a past medical history including CAD status post LAD stent x 2 in 2016, hypertension, hyperlipidemia, GERD, and prostate cancer. He was visiting [place], was at a local eatery, had oysters and potato with few sips of red wine, and shortly thereafter developed symptoms as noted above. He has a significant history of coronary artery disease as noted, and due to the symptoms, he was brought to the emergency department for assessment. [facility]. Patient does also report that he has had an acute worsening of chronic left shoulder pain. Admission Exam Per Admitting Provider The patient is awake, alert and oriented 3, well developed and well nourished, normocephalic and atraumatic, lying in bed and in no acute distress. HEENT--PERRL, EOMI, mucous membranes and oropharynx mildly dry. Neck--supple. No JVD. No bruits. Thyroid normal, trachea midline, no adenopathy. Heart--normal S1 and S2. No murmurs, rubs or gallops. Lungs--clear bilaterally, no respiratory distress, no accessory muscle use. Abdomen--normal bowel sounds and soft. Nontender. Nondistended. Extremities--No edema. Dermatologic--normal skin turgor, normal color, no abnormal lymph nodes, no rash. Neurologic--cranial nerves II through XII grossly intact. Rheumatologic--normal range of motion. Psychiatric--normal affect. Principal Diagnosis Vasovagal syncope Hypokalemia Atypical chest pain likely related to vasovagal syncope Discharge Exam General: Awake, conversant Heart: S1, S2/regular rate and rhythm, no murmur rubs or gallops Lungs: Clear to auscultation bilaterally. Normal effort Abdomen: Soft/nontender/nondistended. No hepatosplenomegaly Extremities: No clubbing/cyanosis. No edema Behavior: Appropriate, cooperative Discharge Data Allergies Allergy/AdvReac Type Severity Reaction Status Date / Time No Known Allergies Allergy Unverified 10/05/24 01:57 Consultations 10/04/24 23:24 ED Decision to Admit Stat 10/05/24 08:59 Consult Cardiology Routine 10/05/24 12:45 Burn CD for patient Stat Ordered Studies Chest X-Ray 10/04/24 21:41 Exam(s): XR CXR 1 VIEW EXAM: XR Chest, 1 View CLINICAL HISTORY: Chest pain, nonspecific. TECHNIQUE: Frontal view of the chest. COMPARISON: No relevant prior studies available. FINDINGS: Lungs: Slightly diminished lung volumes. No focal airspace consolidation. The pulmonary vasculature demonstrates no significant radiographic abnormality. Pleural space: Unremarkable. No pneumothorax. No large pleural effusion. Heart: Unremarkable. No cardiomegaly. Mediastinum: No significant abnormality identified. The trachea is midline. Bones/joints: Unremarkable. No acute fracture. IMPRESSION: Slightly diminished lung volumes without focal consolidation or acute cardiopulmonary process identified. Electronically signed by: Gibson Rich MD 10/04/24 23:36 PM Chest CTA 10/04/24 22:31 Exam(s): CTA CHEST IV Amt: 115 ml opti 320 EXAM: CT Angiography Chest With Intravenous Contrast CLINICAL HISTORY: Evaluate for possible PE. TECHNIQUE: Axial computed tomographic angiography images of the chest with intravenous contrast. CTDI is 42.64 mGy and DLP is 953.48 mGy-cm. Automated exposure control was utilized for the study. A dose lowering technique was utilized adhering to the principles of ALARA. MIP reconstructed images were created and reviewed. COMPARISON: No relevant prior studies available. FINDINGS: Limitations: There is respiratory artifact, which degrades image quality on multiple image slices. Pulmonary arteries: Accounting for respiratory artifact, there is no definite evidence for pulmonary embolism. Aorta: The thoracic aorta is normal in caliber without dissection or aneurysm. Lungs: Dependent areas of increased attenuation are noted involving both lungs. No focal airspace consolidation identified. Pleural space: Unremarkable. No significant effusion. No pneumothorax. Heart: The cardiac chambers are upper normal limits in size. Prominent coronary artery calcification noted in the LAD distribution. No pericardial effusion. Mediastinum: Small hiatal hernia. Bones/joints: No acute fracture. No dislocation. Soft tissues: Unremarkable. Lymph nodes: Unremarkable. No enlarged lymph nodes. IMPRESSION: 1. Accounting for respiratory artifact, there is no definite evidence for pulmonary embolism. 2. Dependent areas of increased attenuation are presumed subsegmental atelectasis. Dependent edema is considered less likely. No focal airspace consolidation identified. No pleural effusion or pneumothorax. Electronically signed by: Gibson Rich MD 10/04/24 23:33 PM Shoulder MRI 10/05/24 00:56 EXAM: MR shoulder LT wo con CLINICAL HISTORY: patient was having dinner when sudden onset of lightheadedness. dizzy. sob. came to hospital for cardiac assessment. injured shoulder 2 to 3 weeks ago moving furniture. has been waiting for insurance to approve MRI. ordered tonight through the ED. room B7. 165 images TECHNIQUE: Multisequential and multiplanar images of the left shoulder were submitted for review without contrast. COMPARISON: None. FINDINGS: TENDONS AND MUSCLES: Full thickness anterior supraspinatus and superior subscapularis insertional tear, measuring 11 mm herbie-posteriorly by 5 mm transversely. The infraspinatus tendon is intact, without tendinosis, surface fraying or focal tear. Normal infraspinatus muscle without edema or atrophy. Medial subluxation of the bicipital tendon out of the bicipital groove. Mild tendinosis of the bicipital tendon in its mid part. Normal intra-articular segment of the long bicipital tendon. Normal teres minor tendon, without tendinosis, surface fraying, or focal tear. The teres minor muscle demonstrates mild oedema without atrophy. The deltoid muscle is within normal limits in signal without edema or atrophy. LABRUM: Normal. OSSEOUS STRUCTURES: Moderate acromio-clavicular joint osteoarthrosis. Bone marrow signal is otherwise within normal limits without bone contusion, fracture or AVN. SOFT TISSUES: Moderate amount of fluid in subacromial-subdeltoid bursa. Mild gleno-humeral joint effusion with fluid extending into inferior axillary recess. Moderate amount of fluid in subcoracoid bursa. There are no intraarticular osteochondral bodies. There are no soft tissue masses. Normal subcutaneous adipose space. IMPRESSION: 1. Full thickness anterior supraspinatus and superior subscapularis insertional tear as described. 2. Medial subluxation with mild tendinosis of the bicipital tendon. 3. Moderate acromio-clavicular joint osteoarthrosis. 4. Moderate subacromial-subdeltoid and subcoracoid bursal fluid. 5. Mild gleno-humeral joint effusion. Electronically signed by Tez Carlisle 10-05-2024 03:06 AM 10/04/24 22:31 CT angio chest PE protocol Stat 10/05/24 00:56 MRI Shoulder [MR shoulder LT wo con] Stat Hospital Course (1) Pre-syncope: (2) Atypical chest pain: (3) Hypokalemia: (4) Presence of stent in LAD coronary artery: (5) Hypertension: (6) Shortness of breath: (7) Left shoulder pain: Plan Presyncope/shortness of breath/atypical chest pain/CAD/history of LAD stent x 2 in 2016- Troponins have been negative 2D echo was unremarkable Patient was seen in consultation by cardiology who thinks that this was most likely a vasovagal syncope and chest pain was associated with that Patient is walking around in the room without any symptoms Cardiology has cleared the patient for discharge with outpatient cardiology follow-up Resume triamterene/HCTZ and amlodipine/benazepril Will discharge on potassium supplements Hypokalemia/renal insufficiency- Resolved Advised the patient to stay hydrated Discharge the patient on potassium supplements Advised to follow-up with PCP and machine stacker Hyperlipidemia- Continue rosuvastatin 40 mg at bedtime and Zetia 10 mg in the a.m. GERD- Continue pantoprazole 40 mg every morning Acute worsening of chronic left shoulder pain- MRI of left shoulder with significant abnormal findings as noted in imaging above Patient does have a pending orthopedic appointment at home at [facility] Total Time Total Time Spent Total Time Spent (In Minutes): 35 Discharge Plan Discharge Items Patient Disposition: Home - Self-Care Reason For Visit: CHEST PAIN, SOB, HYPOKALEMIA, HX LAD STENT Discharge Diagnosis: Vasovagal syncope Hypokalemia Atypical chest pain likely related to vasovagal syncope Condition on Discharge: Good Activity: Resume your previous activity Non-emergency contact: Primary Care Provider Call non-emergency contact if: you have any medication questions and your symptoms worsen Follow-up/Referrals: Paula Bartholomew MD [Primary Care Provider] - Diet: Heart Healthy Addtl Attending Provider Instructions: Advised to follow-up with PCP in 1 week Advised to follow-up with machine stacker in 1 week Pending Studies at Discharge: No Stand-Alone Forms: My [employer] Medications and DC Order Prescriptions: New potassium chloride 20 mEq tablet extended release 20 meq PO BID Qty: 60 0RF Continued ezetimibe 10 mg tablet 10 mg 1XD carvedilol 3.125 mg tablet 3.125 mg PO 2XD pantoprazole 40 mg tablet,delayed release (DR/EC) 40 mg PO DAILY aspirin 81 mg Tablet 81 mg PO DAILY triamterene-hydrochlorothiazid 75-50 mg tablet 1 tab PO DAILY rosuvastatin 40 mg tablet 40 mg HS amlodipine-benazepril 5-40 mg capsule 1 cap PO HS Discharge Orders: Discharge Order (Routine); Ordered 10/05/24 Ordered By: Mimi Deshpande Admission Data Admit Date/Time: 10/05/24 00:33 Attending Provider: Mimi Deshpande Admit Provider: Ildefonso Velasco Primary Care Provider: Paula Bartholomew Other Providers: Ildefonso Velasco; Julio C Melendez Other Interventions: Discharge Summary Assessment (RN) Last Done: 10/05/24 13:19
--- NOTE | 2024-10-05 15:09 | Electrocardiogram Report ---
Test Reason : Blood Pressure : */* mmHG Vent. Rate : 77 BPM Atrial Rate : 77 BPM P-R Int : 180 ms QRS Dur : 92 ms QT Int : 400 ms P-R-T Axes : 60 -20 74 degrees QTcB Int : 452 ms Normal sinus rhythm Normal ECG No previous ECGs available Confirmed by Eduardo Snider ([id number]) on 10/05/2024 3:08:42 PM Referred By: REFERRED SELF Confirmed By: Eduardo Snider
--- NOTE | 2024-10-05 15:10 | Electrocardiogram Report ---
Test Reason : Blood Pressure : */* mmHG Vent. Rate : 77 BPM Atrial Rate : 77 BPM P-R Int : 190 ms QRS Dur : 96 ms QT Int : 400 ms P-R-T Axes : 47 -27 46 degrees QTcB Int : 452 ms Normal sinus rhythm Normal ECG When compared with ECG of 04-Oct-2024 21:32, No significant change Confirmed by Eduardo Snider ([id number]) on 10/05/2024 3:09:55 PM Referred By: REFERRED SELF Confirmed By: Eduardo Snider
--- NOTE | 2024-10-05 15:11 | Electrocardiogram Report ---
Test Reason : Blood Pressure : */* mmHG Vent. Rate : 82 BPM Atrial Rate : 82 BPM P-R Int : 194 ms QRS Dur : 92 ms QT Int : 396 ms P-R-T Axes : 51 -32 52 degrees QTcB Int : 462 ms Normal sinus rhythm Left axis deviation Abnormal ECG When compared with ECG of 04-Oct-2024 22:00, No significant change was found Confirmed by Eduardo Snider ([id number]) on 10/05/2024 3:10:26 PM Referred By: REFERRED SELF Confirmed By: Eduardo Snider
[2024-10-05] MEDS ORDERED: ROSUVASTATIN CALCIUM 20 MG TAB PO SCH (21:00)
--- OUTSIDE RECORDS SUMMARY | 2024-10-06 13:07 | External Medical Summary | Continuity of Care Document ---
Author Name Unknown Organization [facility] Address [address] [place] [address] Phone [phone] Problems Active Problems Provider Date Essential hypertension Paula Bartholomew MD Ons et: 05/11/2018 Mixed hyperlipidemia Paula Bartholomew MD Onset : 05/11/2018 Carotid artery occlusion Paula Bartholomew MD O nset: 05/11/2018 Note: Document: 04/07/18 - C ardiology Consult Coronary atherosclerosis Paula Bartholomew MD O nset: 05/11/2018 Note: Document: 04/07/18 - C ardiology Consult Chronic kidney disease stage 3 Paula Bartholomew MD Onset: 05/11/2018 Localized, primary osteoarthritis Paula neumann MD Onset: 05/11/2018 Note: Document: 04/26/18 - O rthopaedic Consult Premature beats Paula Bartholomew MD Onset: Note: Document: 04/07/18 - C ardiology Consult Gastroesophageal reflux disease Paula ocasio MD Onset: 05/11/2018 Note: Document: 04/07/18 - C ardiology Consult Impotence of organic origin Wendy Post Onset: 05/11/2018 Note: Document: 08/29/17 - U rology Consult Male urinary stress incontinence Paula perkins MD Onset: 05/11/2018 Note: Document: 08/29/17 - U rology Consult Spinal stenosis of lumbar region Paula perkins MD Onset: 05/11/2018 Note: Document: 05/03/16 - P ain Management Lumbar radiculopathy Paula Bartholomew MD Onset : 05/11/2018 Note: Document: 05/03/16 - P ain Management History of squamous cell carcinoma of skin Paula Bartholomew MD Onset: 05/11/2018 Note: Document: 01/29/15 - D ermatology Consult History of malignant neoplasm of prostate Paula Bartholomew MD Onset: 05/11/2018 Note: Document: 08/29/17 - U rology Consult History of placement of sten t for coronary artery disease Paula Bartholomew MD Onset: 05/11/2018 Note: Document: 04/07/18 - C ardiology Consult Chronic kidney disease stage 3A Paula ocasio MD Onset: 03/26/2023 Social History Type Date Description Comments Sex Unknown Tobacco Use Reviewed: 12/21/22 Never Smoked Cigarette s Tobacco Use Reviewed: 12/21/22 Never Smoked Cigars Tobacco Use Reviewed: 12/21/22 Never Smoked A Pipe Smoking Status Reviewed: 07/25/24 Never Smoked A Pipe Smokeless Tobacco 12/21/2022 Never Used Smokeless To bacco ETOH Use Occasionally consumes alcoho l Tobacco Use Start: Unknown Patient has never smoked Recreational Drug Use Denies Drug Use Enjoy Exercising Enjoys exercising Sun Exposure moderate amount of sun expos ure Seat Belt/Car Seat always uses seat belt Allergies and adverse reactions Active Allergies Criticality Reaction | Severity Comments Date Peridex Rinse Unable to assess criticality rash | Severe 12/31/2019 Medications Active Medications SIG Qnty Indications Order ing Provider Date Rosuvastatin [id number] Tablets Take 1 Tablet Daily 90tabs Paula Bartholomew MD 12/13/2018 Triamterene/Hydrochl ndbbuoeazch26-15yq Tablets Take 1 Tablet Daily 90tabs Paula Bartholomew MD 06/28/2016 Aspir-Gty46fp Tablets DR 1 by mouth every day otc Paula Bartholomew MD 05/27/2015 Amlodipine Besylate/Benazepril Hydrochloride5-40mg Capsules Take 1 Capsule Daily 14caps I10 Paula Bartholomew MD 05/27/[address] Take 1 Tablet Daily 90tabs Paula Bartholomew MD 05/27/2015 Stool Wizivhqj876cv Tablets 2 hs 60tabs Blake Beal, DO Carvedilol3.125mg Tablets Take 1 Tablet Twice A Day Per Railroader 180tabs I10 Paula Bartholomew MD Psizfpzni26gz Tablets 1 by mouth every day Unknown Medications Administered in Office Medication SIG Qnty Indications Ordering Provider Date Injection Dexamethasone Sodi um Phosphate, 1 MGInjection Oneil Mix MD 09/24/2019 Injection Dexamethasone Sodi um Phosphate, 1 MGInjection Blake Beal, DO 08/03/2016 Immunizations CPT Code Status Date Vaccine Lot # [id number] Given 07/25/2024 Influenza Vac, Split, Preservative Free High Dose Age 65 & > [id number] Given 10/10/2023 Influenza Vaccine High Do se 0.5ML Age 65 & > [id number] 65270 Given 09/10/2022 Influenza Vaccine High Do se 0.5ML Age 65 & > [id number] 86940 Given 08/20/2022 Moderna Sars-Co v-2 (Covid-19) Vaccine, BiValent Booster 12y+ 62564 Given 10/16/2021 Moderna Sars-Co v-2 (Cov-19) vacc,100 mcg/ 0.5 mL 12Y+EMR Doc Only 65630 Given 07/10/2021 Influenza Vaccine High Do se 0.5ML Age 65 & > [id number] 88203 Given 02/16/2021 Moderna Sars-Co v-2 (Cov-19) vacc,100 mcg/ 0.5 mL 12Y+EMR Doc Only 77294 Given 01/15/2021 Moderna Sars-Co v-2 (Cov-19) vacc,100 mcg/ 0.5 mL 12Y+EMR Doc Only 95391 Given 07/11/2020 Influenza Vaccine High Do se 0.5ML Age 65 & > [id number] 33553 Given 10/09/2019 Influenza Vacci ne, Inactivated, Subunit, Adjuvanted, For [facility] [id number] 85169 Given 06/25/2019 Shingrix 97764 Given 07/21/2018 Shingrix 67594 Given 07/19/2018 Influenza Vac, Split, Preservative Free High Dose Age 65 & > [id number] 89371 Given 07/29/2017 Influenza Vac, Split, Preservative Free High Dose Age 65 & > [id number] 79182 Given 08/03/2016 Influenza Vac, Split, Preservative Free High Dose Age 65 & > [id number] 85861 Given 09/12/2015 Influenza Vac, Split, Preservative Free High Dose Age 65 & > 10963 Given 09/12/2015 Influenza Vac, Split, Preservative Free High Dose Age 65 & > [id number] 68371 Given 09/02/2015 Pneumococcal Conjugate-Pr evnar 13 [id number] 60296 Given 06/14/2014 Pneumococcal Vaccine/Pneu movax 23 50942 Given 10/14/2011 Tdap (Tetanus, diphtheria & acel. pertussis) Adacel or Boostrix 03004 Given 01/20/2009 Zostavax Vaccine 76810 Given 12/10/2005 Td (Tetanus & D iphtheria) Decavac or Tenivac Age 7 & > Vital Signs Date Vital Result Comment 07/25/2024 8:09am BP Systolic 118 mmHg BP Diastolic 64 mmHg Body Temperature 97.7 F Heart Rate 68 /min Respiratory Rate 15 /min Weight 215.00 lb Weight 97.524 kg Height 69.75 inches 5'9.75" BMI (Body Mass Index) 31.1 kg/m2 [place] Body Weight 160 lb 04/18/2024 7:51am BP Systolic 114 mmHg BP Diastolic 72 mmHg Body Temperature 97.5 F Heart Rate 66 /min Respiratory Rate 15 /min Weight 214.50 lb Weight 97.297 kg Height 69.75 inches 5'9.75" BMI (Body Mass Index) 31.0 kg/m2 [place] Body Weight 160 lb Results Test Acquired Date Facility Test Result H/L Range Note Lipid 07/25/2024 [facility] [address] [place] [address] [phone] Cholesterol 121 mg/dL 0-200 1, 2 Triglyceride 112 mg/dL 0-150 3 HDLD 54 mg/dL See Comment 4 Measured LDL 55 mg/dL 0-130 5 Calc VLDL 22.4 mg/dL See Comment 6 Chol/HDL 2.2 RATIO See Comment 7 Non-HDL 67 mg/dL See Comment 8 Laboratory test finding 07/25/2024 [facility] [address] [place] [address] Alt(SGPT) 24 IU/L 10-40 Ast(Sgot) 18 IU/L 3-42 BMP 04/18/2024 [facility] [address] [place] [address] Glucose 108 mg/dL 70-110 9 BUN 27 mg/dL High 6-25 Creatinine 1.3 mg/dL 0.7-1.3 Sodium 140 mEq/L 135-145 Potassium 3.6 mEq/L 3.5-5.0 Chloride 99 mEq/L 95-107 Co-2 29 mEq/L 24-31 Calcium 10.0 mg/dL 8.5-10.6 GFR 57 ML/MIN/1. 73SQM Low >60 Lipid 04/18/2024 [facility] [address] [place] [address] [phone] Cholesterol 116 mg/dL 0-200 10 Triglyceride 113 mg/dL 0-150 1 1 HDLD 52 mg/dL See Comment 12 Measured LDL 49 mg/dL 0-130 13 Calc VLDL 22.6 mg/dL See Comment 14 Chol/HDL 2.2 RATIO See Comment 15 Non-HDL 64 mg/dL See Comment 16 Laboratory test finding 04/18/2024 [facility] [address] [place] [address] Alt(SGPT) 22 IU/L 10-40 Ast(Sgot) 22 IU/L 3-42 Psa2 <0.05 ng/mL 0.0-4.0 PTH, Intact And Calcium 04/18/2024 [employer] [facility] [email or web address] [facility] [place] [address] [phone] Parathyroid Hormone, Intact 47 pg/mL Normal 16-77 17, 18 Calcium 9.8 mg/dL Normal 8.6-10.3 Laboratory test finding 04/18/2024 [employer] [facility] [email or web address] [facility] [place] [address] Clinical PDF Report [id number] SEE IMAGE 1 FASTING 2 CHOLESTEROL Less than 200mg/dl Low risk 201-239 mg/dl Borderline risk Equal to or greater 240mg/dl High risk 3 TRIGLYCERIDES Less than 150mg/dl Normal 150-199mg/dl Borderline 200-499mg/dl High Greater than 500mg/dl Very High 4 HDL <40mg/dl Elevated Risk 41-59mg/dl Risk >=60mg/dl Least Risk 5 LDL <100mg/dl Optimal 100-129mg/dl Near Optimal 130-159mg/dl Borderline High 160-189mg/dl High >=190 Very High 6 VLDL Less than 30mg/dl Normal 7 CHOL/HDL <4.0 Optimal 4.0-5.0 Borderline >6.0 High Risk 8 NON-HDL 30mg/dl higher than LDL Target 9 FASTING 10 CHOLESTEROL Less than 200mg/dl Low risk 201-239 mg/dl Borderline risk Equal to or greater 240mg/dl High risk 11 TRIGLYCERIDES Less than 150mg/dl Normal 150-199mg/dl Borderline 200-499mg/dl High Greater than 500mg/dl Very High 12 HDL <40mg/dl Elevated Risk 41-59mg/dl Risk >=60mg/dl Least Risk 13 LDL <100mg/dl Optimal 100-129mg/dl Near Optimal 130-159mg/dl Borderline High 160-189mg/dl High >=190 Very High 14 VLDL Less than 30mg/dl Normal 15 CHOL/HDL <4.0 Optimal 4.0-5.0 Borderline >6.0 High Risk 16 NON-HDL 30mg/dl higher than LDL Target 17 FASTING FASTING: YES 18 Interpretive Guide I ntact PTH Calcium ------- Normal Parathyroid Normal Normal Hypoparathyroidism Low or Low Normal Low Hyperparathyroidism Primary Normal or High High Secondary High Normal or Low Tertiary High High Non-Parathyroid Hypercalcemia Low or Low Normal High Procedures Date Code Description Status 07/25/2024 G9920 Scrning Perf And Negative Co mpleted 07/25/2024 51950 Venipuncture Routine Complet ed 07/25/2024 3078F PVRP Diastolic BP <80 mmHg C ompleted 07/25/2024 3074F PVRP Systolic BP <130 mmHg C ompleted 04/18/2024 G2211 Continuation of care e/m vis it add on Completed 04/18/2024 42680 Remove Impacted Cerumen Comp leted 04/18/2024 26302 Venipuncture Routine Complet ed 04/18/2024 3078F PVRP Diastolic BP <80 mmHg C ompleted 04/18/2024 3074F PVRP Systolic BP <130 mmHg C ompleted 02/03/2022 [id number] Colonoscopy Completed 03/29/2014 [id number] Flexible Sigmoidoscopy Compl eted Medical Devices Description No Information Available Encounters Type Date Location Provider Dx Diagnosis Office Visit 04/18/2024 8:00a [facility] Paula Bartholomew MD N18.31 Chronic kidney disease, stage 3a I10 Essential (primary) hypertension E78.49 Other hyperlipidemia H61.21 Impacted cerumen, ri ght ear C61 Malignant neoplasm o f prostate Assessments Date Code Description Provider 07/25/2024 I10 Essential (primary) hyperten mac Bartholomew MD 07/25/2024 E78.49 Other hyperlipidemia Paula Bartholomew MD 07/25/2024 N18.31 Chronic kidney disease, stag e sharron Bartholomew MD 07/25/2024 M54.32 Sciatica, left side Paula Bartholomew MD 04/18/2024 N18.31 Chronic kidney disease, stag e sharron Bartholomew MD 04/18/2024 I10 Essential (primary) hyperten mac Bartholomew MD 04/18/2024 E78.49 Other hyperlipidemia Paula Bartholomew MD 04/18/2024 H61.21 Impacted cerumen, right ear Paula Bartholomew MD 04/18/2024 C61 Malignant neoplasm of prosta te Paula Bartholomew MD Plan of Treatment Future Appointment(s):* 10/30/2024 8:30 am - Paula Bartholomew MD at [facility] 07/25/2024 - Paula Bartholomew MD* I10 Essential (primary) hypertension* Follow up:* Followup in three months. * Recommendations:* Low-salt diet. Exercise. * E78.49 Other hyperlipidemia* Comments:* Continue current medication regimen. * Follow up:* Followup in three months with fasting labs. * N18.31 Chronic kidney disease, stage 3a* Comments:* stable-has not seen nephrology is awhile * M54.32 Sciatica, left side* New Orders:* Physical Therapy Eval & Treat, Scheduled: 07/30/24 * Comments:* pt would like imaging and pt again to help with sx Functional Status Functional Condition Comment Date Status Glasses Active Mental Status Description No Information Available Referrals Description No Information Available
--- OUTSIDE RECORDS SUMMARY | 2024-10-06 13:07 | External Medical Summary | Continuity of Care Document ---
Author Name Unknown Organization [address] Address [address] [facility] [address] [facility] [place] S[place]HE[place] [id number] Care Team Providers Care Pathological Technician Name Role Phone Paula Bartholomew Primary Care Physician [phone] [id number] Date(s): 06/19/24 - 06/19/[address] ALEKSANDR C [facility] Specialties [address] [facility], [address] [place] [address] [phone] Encounter Diagnosis Dermatitis(Discharge Diagnosis) - 06/19/24 Prurigo nodularis(Discharge Diagnosis) - 06/19/24 Actinic keratoses(Discharge Diagnosis) - 06/19/24 Discharge Disposition: Home or Self Care Attending Physician: MD Amos, Dashawn Maurice Referring Physician: MD Bartholomew Bryan E Allergies, Adverse Reactions, Alerts Substance Criticality Severity Reaction Reaction Severity Status chlorhexidine topical Unspec ified Swelling Erythroderma caused by drug Eruption Itching Active acetaminophen-oxycodon e 1 Other Active Peridex Unknown Active 1Outside Source Comment: RASH Assessment and Plan Extracted from: Title:Dermatology Office Visit Note Author:Sam johns DO, Gelan Date:06/19/24 1.Dermatitis Healing - Patient counseled to stop using 5-FU cream to the hands for the dermatitis. - Patient was prescribed triamcinolonecream0.1% to use to the affected areatwicea day. Patient was advised of the side effects of topical steroids such as skin atrophy, hyper/hypo pigmentation, and was advised to not use it around eyes, axilla and groin for a prolonged period of time. 2.Prurigo nodularis - Prescribed Clobetasol 0.05 % solution BID to spot on the scalp - Discussed possible side effects including: skin thinning, dyspigmentation, striae 3.Actinic keratoses - A total of 4 lesion(s) were treated with cryotherapy. - The patient was counseled on the premalignant nature of these lesions, and they were treated with cryotherapy today which the patient is agreeable to. The risks/complications (including pain, crusting/erythema, dyspigmentation, infection, and scar), benefits, indications, and alternatives were discussed, and consent was obtained. If no resolution in 3-4 weeks patient to notify clinic for re-evaluation.Informational sheet on Liquid nitrogen therapy, including wound care instructions, were provided. - The patient elected not to freeze the other lesions. Educated on use of sunscreen to limit progression Patient has a follow up appointment scheduled in August for full body skin exam Medications amlodipine-benazepril 5 mg-20 mg oral capsule Start: 01/29/14 1:02:00 PM EDT, 1 cap, PO, Daily Start Date: 01/29/14 Status: Ordered calcipotriene/5-FU Start: 05/13/20 4:29:00 PM EDT, calcipotriene/5-FU, eRx Product Type: Compound, See Instructions, Disp# 30 g, apply thin layer to face nightly for 4 weeks. avoid around eyes. clean hands after applying., Note to Pharmacy: compound 5FU 5% cream with equal parts calcipotriene 0.005% cream, [facility] Start Date: 05/13/20 Status: Ordered carvedilol 3.125 mg oral tablet Start: 02/04/17 11:03:00 AM EDT, 1 tab, PO, bid Start Date: 02/04/17 Status: Ordered clobetasol 0.05% topical solution Start: 06/19/24 11:36:00 AM EDT, 1 appl, topical, Daily, Disp# 25 mL, Apply a thin film to scalp as needed. Do not use for greater than 12 days at a time., Pharmacy: [facility]/pharmacy #[id number] Start Date: 06/19/24 Status: Ordered clobetasol 0.05% topical solution Start: 02/06/18 11:21:00 AM EDT, 1 appl, topical, bid, Disp# 50 mL, Refills: 5, Pharmacy: [facility] [place] [address] Start Date: 02/06/18 Status: Ordered ezetimibe 10 mg oral tablet Start: 06/21/24 11:18:00 AM EDT, 1 tab, PO, Daily, Disp# 90 tab, Refills: 3, Pharmacy: [facility] Start Date: 06/21/24 Status: Ordered fluocinonide 0.05% topical ointment Start: 05/27/23 12:16:00 PM EDT, See Instructions, Disp# 60 g, Refills: 2, Apply a thin layer to hands twice daily 4 days per week as needed, Pharmacy: [facility]/pharmacy #[id number] Start Date: 05/27/23 Status: Ordered fluorouracil 5% topical cream Start: 05/13/20 4:28:00 PM EDT, 1 appl, topical, bid, Disp# 40 g, Refills: 0, Pharmacy: [facility][id number] Start Date: 05/13/20 Stop Date: 05/27/20 Status: Ordered hydrochlorothiazide-triamterene 50 mg-75 mg oral tablet Start: 07/12/16 9:27:00 AM EDT, 1 tab, PO, Daily Start Date: 07/12/16 Status: Ordered Lidex 0.05% topical solution Start: 06/29/17 10:56:00 AM EDT, 1 appl, topical, bid, Disp# 20 mL, Refills: 1, to scalp, Pharmacy: [facility] Start Date: 06/29/17 Status: Ordered pantoprazole 40 mg oral delayed release tablet Start: 01/29/15 11:26:00 AM EDT, 1 tab, PO, Daily Start Date: 01/29/15 Status: Ordered pramoxine 1% topical lotion Start: 02/03/16 1:41:00 PM EDT, 1 appl, topical, qid, Disp# 222 mL, Refills: 4, PRN: Itching, Pharmacy: [facility] Start Date: 02/03/16 Stop Date: 04/13/16 Status: Ordered rosuvastatin 40 mg oral tablet Start: 08/29/23 1:37:00 PM EDT, 1 tab, PO, Daily Start Date: 08/29/23 Status: Ordered triamcinolone 0.1% topical cream Start: 06/19/24 11:37:00 AM EDT, 1 appl, topical, bid, Disp# 30 g, Pharmacy: [facility] #[id number] Start Date: 06/19/24 Status: Ordered Mental Status 06/19/24 Barriers to Learning one year None evide nt Mandatory Health Literacy Documentation Yes Health Literacy Communication Barriers N ever Primary Language Tajik Problem List Condition Confirmation Course Effective Dates Status Health Status Informant Actinic keratoses Confirmed Active Folliculitis Confirmed Active Acid reflux Confirmed Active History of squamous cell carcinoma of skin Confirmed Active Hypercholesterolemia Confirmed Active Hypertension Confirmed Active Prostate cancer Confirmed Active Seborrheic keratosis Confirmed Active Squamous cell carcinoma of skin 1 Confirmed Active 1jaw Diagnosis Diagnosis Type Effective Dates Health Status Clinical Service Informant Actinic keratoses Discharge Diagnosis 06/19/24 Dermatitis Discharge Diagnosis 06/19/24 Prurigo nodularis Discharge Diagnosis 06/19/24 Procedures Procedure Date Related Diagnosis Body Site Status Excision 08/12/20 Completed Transurethral cryosurgical r emoval of prostate 06/2013 Completed Bunionectomy Completed Hernia Completed Social History Social History Type Response Smoking Status Never smoked cigaret bobbi Sex Male Sex Representation Male (finding) Dermatology Outpatient Note * MD Trinidad Thomas N: MODIFY MD Trinidad Thomas N: MODIFY, MODIFY Event Display: Dermatology Outpt Note Authored Date: Chief Complaint spots on hands and face History of Present Illness 74-year-old malewho presents for6-month follow-upand full-body skin exam.Reportsa spot of concern on the face andon the hands. States he developed pink, itchy bumps on the hands a few weeks ago that have improved with fluocinonide 5% cream. He was also using fluorouracil 5% cream intermittently on the hands and face. 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 Physical Exam GEN:Well appearing, alert, no distress SKIN: Limited examination performed at request of patient. Examinationofhead, scalp,bilateralarms, and bilaterallegsare normal except: 1. Multiple rough, erythematous papules and patches on the face 2. pink rough plaque to occipital scalp 3. pink-red papules with excoriations to bilateral dorsal hands Body areasnot listed above were deferred by patient. Assessment/Plan 1.Dermatitis Healing - Patient counseled to stop using 5-FU cream to the hands for the dermatitis. - Patient was prescribed triamcinolonecream0.1% to use to the affected areatwice day. Patient was advised of the side effects of topical steroids such as skin atrophy, hyper/hypo pigmentation, and was advised to not use it around eyes, axilla and groin for a prolonged period of time. 2.Prurigo nodularis - Prescribed Clobetasol 0.05 % solution BID to spot on the scalp - Discussed possible side effects including: skin thinning, dyspigmentation, striae 3.Actinic keratoses - A total of 4 lesion(s) were treated with cryotherapy. - The patient was counseled on the premalignant nature of these lesions, and they were treated with cryotherapy today which the patient is agreeable to. The risks/complications (including pain, crusting/erythema, dyspigmentation, infection, and scar), benefits, indications, and alternatives werediscussed, and consent was obtained. If no resolution in 3-4 weeks patient to notify clinic for re-evaluation.Informational sheet on Liquid nitrogen therapy, including wound care instructions, wereprovided. - The patient elected not to freeze the other lesions. Educated on use of sunscreen to limit progression Patient has a follow up appointment scheduled in August for full body skin exam Attestation I,Kyle Trinidad MD, have personally seen and evaluated the patient. I agreed with the above plan and supervised the cryotherapy procedures. Problem List/Past Medical History Ongoing Acid reflux Actinic keratoses BCC (basal cell carcinoma)| Status: Inactive Folliculitis History of squamous cell carcinoma of skin Hypercholesterolemia Hypertension Neoplasm of uncertain behavior| Status: Inactive Prostate cancer Seborrheic keratosis Squamous cell carcinoma of skin Procedure/Surgical History Excision| Service Date: 08/12/2020Transurethral cryosurgical removal of prostate| Service Date: 06/2013HerniaBunionectomy Medications amlodipine-benazepril(amlodipine-benazepril 5 mg-20 mg oral capsule), 1 cap, PO, Daily carvedilol(carvedilol 3.125 mg oral tablet), 3.125 mg= 1 tab, PO, bid clobetasol topical(clobetasol 0.05% topical solution), 1 appl, topical, Daily clobetasol topical(clobetasol 0.05% topical solution), 1 appl, topical, bid, 5 refills ezetimibe(ezetimibe 10 mg oral tablet), 10 mg= 1 tab, PO, Daily, 3 refills fluocinonide topical(Lidex 0.05% topical solution), 1 appl, topical, bid, 1 refills fluocinonide topical(fluocinonide 0.05% topical ointment), See Instructions, 2 refills fluorouracil topical(fluorouracil 5% topical cream), 1 appl, topical, bid hydrochlorothiazide-triamterene(hydrochlorothiazide-triamterene 50 mg-75 mg oral tablet), 1 tab, PO, Daily pantoprazole(pantoprazole 40 mg oral delayed release tablet), 40 mg= 1 tab, PO, Daily pramoxine topical(pramoxine 1% topical lotion), 1 appl, topical, qid, PRN, 4 refills rosuvastatin(rosuvastatin 40 mg oral tablet), 40 mg= 1 tab, PO, Daily triamcinolone topical(triamcinolone 0.1% topical cream), 1 appl, topical, bid unlisted medication(calcipotriene/5-FU), See Instructions Allergies PeridexUnknown acetaminophen-oxycodoneOther chlorhexidine topicalUnspecified, Swelling, Erythroderma caused by drug, Eruption, Itching Social History Smoking Status Never smoked cigarettes Family History Hypertension: Mother and Father. Health Status Family Member(s) Electronic Signature on File Electronically Reviewed/Signed by: Geetha Brush DO Author Signature Dt/Tm:06/19/2024 12:29 PM Resident Department of Dermatology Electronically Reviewed/Signed by: Dashawn Trinidad MD Cosigner Signature Dt/Tm: 06/19/2024 12:51 PM Department of Dermatology GS Patient Care team information Care Team Personnel Name: MD Bartholomew Tania E Position: Referring Member Role: Primary Care Provider Address: [facility] [address] [place] [address] [place] Name: Prince Hall Jason A Position: Pharmacist BCMA Member Role: Pharmacy - Lifetime Address: [address] [address] [place] Name: Prince Chacon Paula Position: Pharmacist Member Role: Pharmacy - Lifetime Address: [place] [address] [facility] [place] [address] [place] Care Team Related Persons Name: ELI FREEDMAN"
--- OUTSIDE RECORDS SUMMARY | 2024-10-06 13:07 | External Medical Summary | Continuity of Care Document ---
Author Name Unknown Organization [facility] Address [address] [place] [address] Phone [phone] Problems Active Problems Provider Date Essential hypertension [...] Qnty Indications Order ing Provider Date Rosuvastatin [id number] Tablets Take 1 Tablet Daily 90tabs Paula Bartholomew MD 12/13/2018 Triamterene/Hydrochl [id number] Tablets Take 1 Tablet Daily 90tabs Paula Bartholomew MD 06/28/2016 Aspir-Ipi95fw Tablets DR 1 by mouth every day otc Paula Bartholomew MD 05/27/2015 Amlodipine Besylate/Benazepril Hydrochloride5-40mg Capsules Take 1 Capsule Daily 14caps I10 Paula Bartholomew MD 05/27/[address] Take 1 Tablet Daily 90tabs Paula Bartholomew MD 05/27/2015 Stool Lhjimdhg636dl Tablets 2 hs 60tabs Blake Beal, DO Carvedilol3.125mg Tablets Take 1 Tablet Twice A Day Per [employer] 180tabs I10 Paula Bartholomew MD Wnffildkq46yd Tablets 1 by mouth every day Unknown Medications Administered in Office Medication SIG Qnty Indications Ordering Provider Date Injection Dexamethasone Sodi um Phosphate, 1 MGInjection Oneil Mix MD 09/24/2019 Injection Dexamethasone Sodi um Phosphate, 1 MGInjection Blake Beal, DO 08/03/2016 Immunizations CPT Code Status Date Vaccine Lot # [id number] Given 07/25/2024 Influenza Vac, Split, Preservative Free High Dose Age 65 & > [id number] 14249 Given 10/10/2023 Influenza Vaccine High Do se 0.5ML Age 65 & > [id number] 15164 Given 09/10/2022 Influenza Vaccine High Do se 0.5ML Age 65 & > [id number] 38232 Given 08/20/2022 Moderna Sars-Co v-2 (Covid-19) Vaccine, BiValent Booster [id number] 27134 Given 10/16/2021 Moderna Sars-Co v-2 (Cov-19) vacc,100 mcg/ 0.5 mL 12Y+EMR Doc Only 94772 Given 07/10/2021 Influenza Vaccine High Do se 0.5ML Age 65 & > [id number] 16199 Given 02/16/2021 Moderna Sars-Co v-2 (Cov-19) vacc,100 mcg/ 0.5 mL 12Y+EMR Doc Only 05740 Given 01/15/2021 Moderna Sars-Co v-2 (Cov-19) vacc,100 mcg/ 0.5 mL 12Y+EMR Doc Only 40821 Given 07/11/2020 Influenza Vaccine High Do se 0.5ML Age 65 & > [id number] 58016 Given 10/09/2019 Influenza Vacci ne, Inactivated, Subunit, Adjuvanted, For [facility] [id number] 86420 Given 06/25/2019 Shingrix 31183 Given 07/21/2018 Shingrix 26856 Given 07/19/2018 Influenza Vac, Split, Preservative Free High Dose Age 65 & > [id number] 91857 Given 07/29/2017 Influenza Vac, Split, Preservative Free High Dose Age 65 & > [id number] 52678 Given 08/03/2016 Influenza Vac, Split, Preservative Free High Dose Age 65 & > [id number] 34729 Given 09/12/2015 Influenza Vac, Split, Preservative Free High Dose Age 65 & > [id number] Given 09/12/2015 Influenza Vac, Split, Preservative Free High Dose Age 65 & > [id number] 27067 Given 09/02/2015 Pneumococcal Conjugate-Pr evnar 13 [id number] 95324 Given 06/14/2014 Pneumococcal Vaccine/Pneu movax 23 28946 Given 10/14/2011 Tdap (Tetanus, diphtheria & acel. pertussis) Adacel or Boostrix 09805 Given 01/20/2009 Zostavax Vaccine 90209 Given 12/10/2005 Td (Tetanus & D iphtheria) Decavac or Tenivac Age 7 & > Vital Signs Date Vital Result Comment 07/25/2024 8:09am BP Systolic 118 mmHg BP Diastolic 64 mmHg Body Temperature 97.7 F Heart Rate 68 /min Respiratory Rate 15 /min Weight 215.00 lb Weight 97.524 kg Height 69.75 inches 5'9.75" BMI (Body Mass Index) 31.1 kg/m2 [place] Body Weight 160 lb 04/18/2024 7:51am BP Systolic 114 mmHg BP Diastolic 72 mmHg Body Temperature 97.5 F Heart Rate 66 /min Respiratory Rate 15 /min Weight 214.50 lb Weight 97.297 kg Height 69.75 inches 5'9.75" BMI (Body Mass Index) 31.0 kg/m2 [place] Body Weight 160 lb Results Test Acquired Date Facility Test Result H/L Range Note Lipid 07/25/2024 [facility] [address] [place] [address] Cholesterol 121 mg/dL 0-200 1, 2 Triglyceride 112 mg/dL 0-150 3 HDLD 54 mg/dL See Comment 4 Measured LDL 55 mg/dL 0-130 5 Calc VLDL 22.4 mg/dL See Comment 6 Chol/HDL 2.2 RATIO See Comment 7 Non-HDL 67 mg/dL See Comment 8 Laboratory test finding 07/25/2024 [facility] [address] [place] [address] Alt(SGPT) 24 IU/L 10-40 Ast(Sgot) 18 IU/L 3-42 BMP 04/18/2024 [facility] [address] [place] [address] [phone] Glucose 108 mg/dL 70-110 9 BUN 27 mg/dL High 6-25 Creatinine 1.3 mg/dL 0.7-1.3 Sodium 140 mEq/L 135-145 Potassium 3.6 mEq/L 3.5-5.0 Chloride 99 mEq/L 95-107 Co-2 29 mEq/L 24-31 Calcium 10.0 mg/dL 8.5-10.6 GFR 57 ML/MIN/1. 73SQM Low >60 Lipid 04/18/2024 [facility] [address] [place] [address] Cholesterol 116 mg/dL 0-200 10 Triglyceride 113 mg/dL 0-150 1 1 HDLD 52 mg/dL See Comment 12 Measured LDL 49 mg/dL 0-130 13 Calc VLDL 22.6 mg/dL See Comment 14 Chol/HDL 2.2 RATIO See Comment 15 Non-HDL 64 mg/dL See Comment 16 Laboratory test finding 04/18/2024 [facility] [address] [place] [address] Alt(SGPT) 22 IU/L 10-40 Ast(Sgot) 22 IU/L 3-42 Psa2 <0.05 ng/mL 0.0-4.0 PTH, Intact And Calcium 04/18/2024 [facility] [place] [address] Parathyroid Hormone, Intact 47 pg/mL Normal 16-77 17, 18 Calcium 9.8 mg/dL Normal 8.6-10.3 Laboratory test finding 04/18/2024 [facility] [place] [address] [phone] Clinical PDF Report [id number] SEE IMAGE 1 FASTING 2 CHOLESTEROL Less [...] Scrning Perf And Negative Co mpleted 07/25/2024 G0008 Influenza Admin Completed 07/25/2024 89850 Venipuncture Routine Complet ed 07/25/2024 3078F PVRP Diastolic BP <80 mmHg C ompleted 07/25/2024 3074F PVRP Systolic BP <130 mmHg C ompleted 04/18/2024 G2211 Continuation of care e/m vis it add on Completed 04/18/2024 76140 Remove Impacted Cerumen Comp leted 04/18/2024 99032 Venipuncture Routine Complet ed 04/18/2024 3078F PVRP Diastolic BP <80 mmHg C ompleted 04/18/2024 3074F PVRP Systolic BP <130 mmHg C ompleted 02/03/2022 [id number] Colonoscopy Completed 03/29/2014 [id number] Flexible Sigmoidoscopy Compl eted Medical Devices Description No Information Available Encounters Type Date Location Provider Dx Diagnosis Office Visit 07/25/2024 8:15a [facility] Paula Bartholomew MD I10 Essential (primary) hypertension E78.49 Other hyperlipidemia N18.31 Chronic kidney disea se, stage 3a M54.32 Sciatica, left side Z23 Encounter for immuni zation Office Visit 04/18/2024 8:00a [facility] Paula Bartholomew MD N18.31 Chronic kidney [...] M54.32 Sciatica, left side Paula Bartholomew MD 07/25/2024 Z23 Encounter for immunization T salvador Bartholomew MD 04/18/2024 N18.31 Chronic kidney disease, stag e sharron Bartholomew MD 04/18/2024 I10 Essential (primary) hyperten mac Bartholomew MD 04/18/2024 E78.49 Other hyperlipidemia Paula Bartholomew MD 04/18/2024 H61.21 Impacted cerumen, right ear Paula Bartholomew MD 04/18/2024 C61 Malignant neoplasm of prosta te Paula Bartholomew MD Plan of Treatment Future Appointment(s):* 10/30/2024 8:30 am - Paula Bartholomew MD at [facility] 07/25/2024 - Paula Bartholomew MD* I10 Essential [...] and pt again to help with sx * Z23 Encounter for immunization Functional Status Functional Condition Comment Date Status Glasses Active Mental Status Description No Information Available Referrals Description No Information Available
--- OUTSIDE RECORDS SUMMARY | 2024-10-06 13:07 | External Medical Summary ---
ALT (Alanine aminotransferase) Created on: ELLE GIRALDO JR External Reference #: [id number] : [id number] Sex: Male Author Name Unknown Address Unknown Organization K1C:[facility] [address] [place] [id number] Laboratory Report Ordering Provider Test Date Status LORA NOBLES 07/25/2024 08:52 Final Observation Date Value Abnormality Reference (Units ) Status ALT (Alanine aminotransferase) 07/25/2024 16:16 24 10-40 (IU/L) Final Performing Location [facility] [address] [place] [id number]
--- OUTSIDE RECORDS SUMMARY | 2024-10-06 13:07 | External Medical Summary | Continuity of Care Document ---
Author Name Unknown Organization [facility] Yakov [facility] Address [address] [facility] [address] [place]HE[place] [id number] Care Team Providers Care Nail Artist Name Role Phone Paula Bartholomew Primary Care Physician [phone] [id number] Date(s): 06/21/24 - 06/21/24 [facility] [address] [facility] 1st Floor [place] Sanchez [phone] Encounter Diagnosis History of PTCA(Discharge Diagnosis) - 06/21/24 CAD (coronary artery disease)(Discharge Diagnosis) - 06/21/24 Hypertension(Discharge Diagnosis) - 06/21/24 Hyperlipemia, mixed(Discharge Diagnosis) - 06/21/24 PVCs (premature ventricular contractions)(Discharge Diagnosis) - 06/21/24 Palpitations(Discharge Diagnosis) - 06/21/24 Discharge Disposition: Home or Self Care Attending Physician: Myron Astudillo DO, Edward C Referring Physician: Myron Astudillo DO, Edward C Allergies, Adverse Reactions, Alerts Substance Criticality Severity Reaction Reaction Severity Status chlorhexidine topical Unspec ified Swelling Erythroderma caused by drug Eruption Itching Active acetaminophen-oxycodon e 1 Other Active Peridex Unknown Active 1Outside Source Comment: RASH Assessment and Plan Extracted from: Title:Cardiology Office Visit Note Author:Galina ocasio Jr, DO, Edward C Date:06/21/24 CAD (coronary artery disease ) History of PTCA Hyperlipemia, mixed Hypertension Palpitations PVCs (premature ventricular contractions) I wish to thank you for allowing [facility] and [facility] to assist in the care of your pleasant patient. The patient is to continue with current medications,includingZetia 10 mg daily in order to improve his LDL cholesterol to the current lower guideline value. His goal for LDL cholesterol should continue to be in the range of 50-70 mg% or less as per the most recent revised recommendations of the [place] [employer]. I would like to reevaluate the patient in the office in approximately 9 months. Certainly, if there is any change in his clinical status in the interim, I will be happy to see him at an earlier date. Sincerely, Ronnie Sanches Jr., DO, [facility] Medications amlodipine-benazepril 5 mg-20 mg oral capsule [...] than 12 days at a time., Pharmacy: [facility]/pharmacy #[id number] Start Date: 06/19/24 Status: Ordered clobetasol 0.05% topical solution Start: 02/06/18 11:21:00 AM EDT, 1 appl, topical, bid, Disp# 50 mL, Refills: 5, [facility]: [facility] [place] [address] Start Date: 02/06/18 Status: Ordered ezetimibe 10 mg oral tablet Start: 06/21/24 11:18:00 AM EDT, 1 tab, PO, Daily, Disp# 90 tab, Refills: 3, Pharmacy: [facility] Start Date: 06/21/24 Status: Ordered fluocinonide 0.05% topical ointment Start: 05/27/23 12:16:00 PM EDT, See Instructions, Disp# 60 g, Refills: 2, Apply a thin layer to hands twice daily 4 days per week as needed, Pharmacy: [facility]/pharmacy #[id number] Start Date: 05/27/23 Status: Ordered fluorouracil 5% topical cream Start: 05/13/20 4:28:00 PM EDT, 1 appl, topical, bid, Disp# 40 g, Refills: 0, Pharmacy: [facility][id number] Start Date: 05/13/20 Stop Date: 05/27/20 Status: Ordered hydrochlorothiazide-triamterene 50 mg-75 mg oral tablet Start: 07/12/16 9:27:00 AM EDT, 1 tab, PO, Daily Start Date: 07/12/16 Status: Ordered Lidex 0.05% topical solution Start: 06/29/17 10:56:00 AM EDT, 1 appl, topical, bid, Disp# 20 mL, Refills: 1, to scalp, [facility] Start Date: 06/29/17 Status: Ordered pantoprazole 40 mg oral delayed release tablet Start: 01/29/15 11:26:00 AM EDT, 1 tab, PO, Daily Start Date: 01/29/15 Status: Ordered pramoxine 1% topical lotion Start: 02/03/16 1:41:00 PM EDT, 1 appl, topical, qid, Disp# 222 mL, Refills: 4, PRN: Itching, [id number] Start Date: 02/03/16 Stop Date: 04/13/16 Status: Ordered rosuvastatin 40 mg oral tablet Start: 08/29/23 1:37:00 PM EDT, 1 tab, PO, Daily Start Date: 08/29/23 Status: Ordered triamcinolone 0.1% topical cream Start: 06/19/24 11:37:00 AM EDT, 1 appl, topical, bid, Disp# 30 g, Pharmacy: [facility]/pharmacy #[id number] Start Date: 06/19/24 Status: Ordered Problem List Condition Confirmation Course Effective Dates [...] Effective Dates Health Status Clinical Service Informant History of PTCA Discharge Diagnosis 06/21/24 Non-Specified CAD (coronary artery disease) Discharge Diagnosis 06/21/24 Non-Specified PVCs (premature ventricular contractions) Discharge Diagnosis 06/21/24 Non-Specified Palpitations Discharge Diagnosis 06/21/24 Non-Specified Hypertension Discharge Diagnosis 06/21/24 Non-Specified Hyperlipemia, mixed Discharge Diagnosis 06/21/24 Non-Specified Procedures Procedure Date Related Diagnosis Body Site Status Excision 08/12/20 Completed Transurethral cryosurgical r emoval of prostate 06/2013 Completed Bunionectomy Completed Hernia Completed Vital Signs Most recent to oldest [Reference Range]: 1 Height 190.6 cm (06/21/24 11:04 AM) Patient Weight 98.4 kg (06/21/24 11:04 AM) Body Mass Index 27.09 kg/m2 (06/21/24 11:04 AM) Heart Rate 76 bpm (06/21/24 11:04 AM) Blood Pressure 110/70mmHg (06/21/24 11:04 AM) BP Location # 1 Left Arm (06/21/24 11:04 AM) Social History Social History Type Response Smoking Status Never smoked cigaret bobbi Sex Male Sex Representation Male (finding) Cardiology Outpatient Note * Myron Astudillo DO, Edward C: PERFORM Event Display: Cardiology Outpt Note Authored Date: [id number] Primary Care Provider MD Puma, Paula Herrera Referring Provider Myron Astudillo DO, Edward C Chief Complaint 6 mo f/u, no complaints History of Present Illness It was a pleasure to see Elle Reynolds in the office today for cardiac followup and evaluation.He states he is doing fairly well,and denies any recent chest pain, palpitations, or shortnessof breath with his daily activity. He states he plays golf once or twice weekly weather permitting. He states he walks his 2 dogsdaily for over a mile without apparent difficulty. He states his most recent cholesterol profile was good. Blood pressure today was 110/68 with a pulse of81. His most recent blood workavailable for review from October 10, 2023revealed a BUN/creatinineof 19/1.2 respectively,total cholesterol 169,LDL 91,HDL68, triglyceride 101.He states his LDL cholesterolnow that he is on Zetia 10 mg daily has markedly improved and is in the range of50. Blood pressure today was 110/70 with a pulse of 76. BMI 27. He had an echocardiogram on November 10, 2023 which revealed well-preserved LV systolic function with LVEF estimatedto be in the range of 50 to 55%. Mild tricuspid regurgitationwas noted. Hehas a history of CAD. He had apharmacologic nuclear stress teston June 18, 2021 which did not reveal any obvious areas of ischemia or infarction and the overall ejection fraction was well-preservedin the range of 68% with normal wall motion. He has a history of prior PTCA withdrug-eluting stents placed to theproximal and mid LADby Dr. Rodriguez July 2016. He developed COVID around 2019. His symptoms consisted of intractable diarrhea. He states that he did not have a lot of pulmonary symptoms, however he states he does still feels somewhat more short of breath with his normal activity since he has had COVID. He has had both of the cor onavirus shots (M). His most recent blood work from March 30, 2021 revealed total cholesterol 131, LDL 70, HDL 54, triglyceride 72. The BUN/creatinine was 28/1.5 respectively. The results were discussed and reviewed with the patient. PMH: As you know, he had PTCA with 2 drug-eluting stents placed to the LAD by Dr. Mcknight after an abnormalstress echocardiogram in July of 2016. He had a cardiac catheterization by Dr. Mcknight on March (via the right wrist) for evaluation of chest pain which revealed that the previously placed stents to the proximal and mid LAD were patent. There were mild luminal irregularities of the circumflex and right coronary arteries respectively. The LVEF was 60%. He has a hematoma in the right wrist region which resolved with the radial pulse present/palpable. He has a history of coronary artery disease. He had a coronary calcium score which was mildly abnormal in October of 2011. At that time, the total score was 163. The distribution of the calcium was as follows: Left main 0, lad 139, RCA 24, and circumflex 0. He has a history of hypertension, hyperlipidemia, and prostate cancer which was diagnosed approximately 6 years ago and treated with surgery. He has a history symptomatic PVCs/palpitation. He had elective left inguinal hernia repair and also repair of a small umbilical hernia by Dr. Napoles your general anesthesia on September 12, 2019 at [facility]. He also had right eyecataract surgery recent past. He recently completed 7 weeks of external beam radiation for his prostate cancer because of a recurrence of elevated PSA. He was initially treated for prostate cancer approximately 6 years ago. He is still getting hormonal injections currently. He states his recent PSA level was very low. EKG in the office on August 20, 2019 revealed sinus rhythm at 67 beats per minute. Left atrial enlargementwas noted. Nonspecific ST and T-wave changes were noted. The results were essentiallyunchanged from previous. He has had problems with his low back and has had epidural injections in the past. He has disc problems in his lumbosacral spine and does have right- sided hip and sciatica type symptoms related to this. He states he may need lumbar spine surgery in the future. Physical Exam Vitals & Measurements HR:76(Monitored) BP:110/70 SpO2:98% HT:190.6cm WT:98.4kg WT:98.400kg(Dosing) BMI:27.09 General: alert, healthy, no distress, well nourished and well developed Head: Normocephalic Eye Exam: PERRLA, EOMI, Conjunctiva are pink and non-injected, sclera clear Ears: External ears normal Neck: supple, no adenopathy, no bruits, Heart: regular rate & rhythm, no murmurs and no gallops Chest: Normal symmetry, no tenderness to palpation, normal respiratory excursion, no intercostal retraction, no use of accessory muscles, normal diaphragmatic excursion, clear to auscultation, no wheezes/rales/rhonchi Pulses: radial=2/4, carotid=2/4 w/o bruits, posterior tibial=2/4 Abdomen: abdomen soft, non-tender, mildly obese. Extremities: no edema, no clubbing, no cyanosis Neuro Exam: alert & oriented x 3 with fluent speech, no focal motor/sensory deficits, gait normal Skin: skin color, texture, turgor are normal Musculoskeletal: No restriction of motion. Assessment/Plan CAD (coronary artery disease) History of PTCA Hyperlipemia, mixed Hypertension Palpitations PVCs (premature ventricular contractions) I wish to thank you for allowing myself and [facility] to assist in the care of your pleasant patient. The patient is to continue with current medications,includingZetia 10 mg daily in order to improve his LDL cholesterol to the current lower guideline value. His goal for LDL cholesterol should continue to be in the range of 50-70 mg% or less as per the most recent revised recommendations of the [place] [employer]. I would like to reevaluate the patient in the office in approximately 9 months. Certainly, if there is any change in his clinical status in the interim, I will be happy to see him at an earlier date. Sincerely, Ronnie Sanches Jr., DO, [facility] Problem List/Past Medical History Ongoing Acid reflux [...] Electronic Signature on File Electronically Reviewed/Signed by: Ronnie Sanches DO Author Signature Dt/Tm:06/21/2024 12:00 PM Cardiovascular Medicine [facility] Patient Care team information Care Team Personnel Name: MD Bartholomew Tania E Position: Referring Member Role: Primary Care Provider Address: [id number] [place] [address] [place] Name: Prince Hall Jason A Position: Pharmacist BCMA Member Role: Pharmacy - [facility] Address: [place] [address] [place] Name: Prince Chacon Paula Position: Pharmacist Member Role: Pharmacy - [facility]etime Address: [place] [address] [place] Care Team Related Persons Name: ELI FREEDMAN"
--- OUTSIDE RECORDS SUMMARY | 2024-10-06 13:07 | External Medical Summary ---
Author Name Unknown Address Unknown Organization [facility]:[address] [place] [address] Laboratory Report Ordering Provider Test Date Status MALLORIELORA 07/25/2024 08:52 Final Observation Date Value Abnormality Reference (Units ) Status Cholesterol 07/25/2024 16:16 121 0-200 (MG/D L) Final CHOLESTEROL
Less than 2 00mg/dl Low risk
201-239 mg/dl Borderline risk
Equal to or greater 240mg/dl High risk Triglyceride 07/25/2024 16:16 112 0-150 (MG/ DL) Final TRIGLYCERIDES
Less than 150mg/dl Normal
150-199mg/dl Borderline
200-499mg/dl High
Greater than 500mg/dl Very High HDL 07/25/2024 16:16 54 SEE COMMENT ( MG/DL) Final HDL
<40mg/dl Elevated R isk
41-59mg/dl Risk
>=60mg/dl Least Risk Cholesterol in LDL [Mass/vol ume] in Serum or Plasma 07/25/2024 16:16 55 0-130 (MG/DL) Final LDL
<100mg/dl Optimal<b r/> 100-129mg/dl Near Optimal
130-159mg/dl Borderline High
160-189mg/dl High
>=190 Very High Cholesterol in VLDL [Mass/vo lume] in Serum or Plasma 07/25/2024 16:16 22.4 SEE COMMENT (MG/DL ) Final VLDL
Less than 30mg/dl Normal HDL 07/25/2024 16:16 2.2 SEE COMMENT ( RATIO) Final CHOL/HDL
<4.0 Optimal<b r/> 4.0-5.0 Borderline
>6.0 High Risk NON-HDL 07/25/2024 16:16 67 SEE COMMENT ( MG/DL) Final NON-HDL
30mg/dl higher than LDL Target Performing Location [facility] [address] [place] [address]
--- OUTSIDE RECORDS SUMMARY | 2024-10-06 13:07 | External Medical Summary | Continuity of Care Document ---
Author Name Unknown Organization [address] Address [address] [facility] [place] [id number] Care Team Providers Care Anthropometrist Name Role Phone Paula Bartholomew Primary Care Physician [phone] [facility]counter [facility] [id number] Date(s): 08/15/24 - 08/15/[address] A[place] C [facility] [address] [facility], [address] [place] [address] [phone] Encounter Diagnosis History of nonmelanoma skin cancer(Discharge Diagnosis) - 08/07/24 Seborrheic keratoses(Discharge Diagnosis) - 08/07/24 Actinic keratitis(Discharge Diagnosis) - 08/15/24 Skin neoplasm(Discharge Diagnosis) - 08/15/24 Prurigo nodularis(Discharge Diagnosis) - 08/15/24 Discharge Disposition: Home or Self Care Attending Physician: AURORA Alfaro Katie Allergies, Adverse Reactions, Alerts Substance Criticality Severity Reaction Reaction Severity Status chlorhexidine topical Unspec ified Swelling Erythroderma caused by drug Eruption Itching Active acetaminophen-oxycodon e 1 Other Active Peridex Unknown Active 1Outside Source Comment: RASH Assessment and Plan Extracted from: Title:Dermatology Office Visit Note Author:AURORA Olvera Katie Date:08/15/24 1.History of nonmelanoma s kin cancer - No evidence of recurrence. Continue to monitor.Signs and symptoms of skin cancer discussed, including ABCDE's of melanoma. Importance ofsun protectionreviewed. Hat, sun protective clothing,and sunscreen SPF 30 or greaterrecommended. 2.Seborrheic keratoses - Chronic, stable - No clinical evidence of malignancy - Monitor 3.Actinic keratitis - Discussed these areskin growths due to sun exposure, some of which may go on to become squamous cell carcinoma. Treatment options discussed with patient. The patient opted for cryotherapy. Tenlesions on the bilateral cheeks were treated with liquid nitrogen x two cycles today. Patient counseled regarding expected erythema and potential blister at sites of treatment. Verbal consent obtained before the procedure. Treated sites will be re-examined at the next clinic visit to ensure lesion resolution. The importance of sun protection was reviewed with the patient. - Discussed use of Efudex, butpatient declines - Patient was asked to call with any concerning changes to the areas treated today 4.Skin neoplasm - SK vs DN vs MM - Shave biopsy x 1sitecompleted today on the right dorsal forearm. Need for biopsy discussed along with details of procedures, risks, and potential complications (bleeding, scar, infection). All questions answered. Verbal consent obtained. Time out performed. The lesion(s) was cleansed withisopropyl alcoholand anesthetized with buffered 1% lidocaine with epinephrine. A sample of the lesion(s) was removed with a dermablade and sent to pathology. Hemostasis was obtained withaluminum chloride.Patient tolerated procedure well. Dressing was applied. Verbal and written wound care instructions given. Patient was informed that further procedure(s) or treatment(s) may be needed pending pathology results. Patient is instructed to call should any problems or concerns arise. - Will call patient with biopsy results. Per patient, ok to leave detailed message regarding results if no answer. 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 After reviewing risks of intralesional triamcinolone, performing time out (during which name, , and site were confirmed), the area was prepped with alcohol swab and injectedwith Kenalog 5mg/mL, for total volume of 0.2ml.Discussed potential side effects including dyspigmentation and skin thinning.Patient verbalized understanding. Patient tolerated procedure well. RTC in 1 year, pending biopsy results, and also PRN Medications amlodipine-benazepril 5 mg-20 mg oral capsule [...] with equal parts calcipotriene 0.005% cream, [facility]acy [facility] Start Date: 05/13/20 Status: Ordered carvedilol 3.125 mg oral tablet Start: 02/04/17 11:03:00 AM EDT, 1 tab, PO, bid Start Date: 02/04/17 Status: Ordered ezetimibe 10 mg oral tablet Start: 06/21/24 11:18:00 AM EDT, 1 tab, PO, Daily, Disp# 90 tab, Refills: 3, Pharmacy: [facility] Start Date: 06/21/24 Status: Ordered fluocinonide 0.05% topical ointment Start: 05/27/23 12:16:00 PM EDT, See Instructions, Disp# 60 g, Refills: 2, Apply a thin layer to hands twice daily 4 days per week as needed, Pharmacy: [facility]/pharmacy #[id number] Start Date: 05/27/23 Status: Ordered fluorouracil 5% topical cream Start: 05/13/20 4:28:00 PM EDT, 1 appl, topical, bid, Disp# 40 g, Refills: 0, Pharmacy: [facility][id number] Start Date: 05/13/20 Stop Date: 05/27/20 Status: Ordered hydrochlorothiazide-triamterene 50 mg-75 mg oral tablet Start: 07/12/16 9:27:00 AM EDT, 1 tab, PO, Daily Start Date: 07/12/16 Status: Ordered pantoprazole 40 mg oral delayed release tablet Start: 01/29/15 11:26:00 AM EDT, 1 tab, PO, Daily Start Date: 01/29/15 Status: Ordered pramoxine 1% topical lotion Start: 02/03/16 1:41:00 PM EDT, 1 appl, topical, qid, Disp# 222 mL, Refills: 4, PRN: Itching, Pharmacy: [id number] Start Date: 02/03/16 Stop Date: 04/13/16 Status: Ordered rosuvastatin 40 mg oral tablet Start: 08/29/23 1:37:00 PM EDT, 1 tab, PO, Daily Start Date: 08/29/23 Status: Ordered triamcinolone 0.1% topical cream Start: 06/19/24 11:37:00 AM EDT, 1 appl, topical, bid, Disp# 30 g, Pharmacy: [facility]pharmacy #[id number] Start Date: 06/19/24 Status: Ordered Problem List [...] Health Status Clinical Service Informant History of nonmelanoma skin cancer Discharge Diagnosis 08/07/24 Non-Specified Seborrheic keratoses Discharge Diagnosis 08/07/24 Non-Specified Actinic keratitis Discharge Diagnosis 08/15/24 Non-Specified Prurigo nodularis Discharge Diagnosis 08/15/24 Non-Specified Skin neoplasm Discharge Diagnosis 08/15/24 Non-Specified Procedures Procedure Date Related Diagnosis Body Site Status Excision 08/12/20 Completed Transurethral cryosurgical r emoval of prostate 06/2013 Completed Bunionectomy Completed Hernia Completed Social History Social History Type Response Smoking Status Never smoked cigaret bobbi Sex Male Sex Representation Male (finding) Dermatology Outpatient Note * AURORA Alfaro Katie: PERFORM Event Display: Dermatology Outpt Note Authored Date: [id number] Chief Complaint annual skin check , full body skin check History of Present Illness 74 yoestablished male patient who presents for skin check. See skin cancer history below. No recent sunburns. Wears sunscreen when golfing. History of prurigo nodularis on the posterior scalp. Had been applying clobetasol solution to the area without improvement. Admits to picking at these lesions and they become irritated. 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 Otherwise feels well. Physical Exam Well-developed, well-nourished man in no acute distress. Alert, oriented and interacts appropriately. A full cutaneous exam was performed with close inspection and palpation where indicated and as allowed by the patient of the hair, scalp, face, lips, neck, chest, abdomen, buttock, back, right upper,left upper, right lower, left lower extremities, hands, feet, nails and digits. The genitalia were not included. The exam was unremarkable except for the following findings: 1) Scatteredwellhealed scars. No lymphadenopathy. 2) Numerous de leon and brown rough stuck-on papules- trunk and extremities 3) Scatteredpink scaly macules- bilateral cheeks 4) 4mm brown macule with irregular pigment and borders- right dorsal forearm (see picture below) 5) Firm pink papules coalescing into a plaque- occipitalscalp Images 2024-08-15 11:58:19 2024-08-15 11:58:30 Assessment/Plan 1.History of nonmelanoma skin cancer - No evidence of recurrence. Continue to monitor.Signs and symptoms of skin cancer discussed, including ABCDE's of melanoma. Importance ofsun protectionreviewed. Hat, sun protective clothing,and sunscreen SPF 30 or greaterrecommended. 2.Seborrheic keratoses - Chronic, stable - No clinical evidence of malignancy - Monitor 3.Actinic keratitis - Discussed these areskin growths due to sun exposure, some of which may go on to become squamouscell carcinoma. Treatment options discussed with patient. The patient opted for cryotherapy. Tenlesions on the bilateral cheeks were treated with liquid nitrogen x two cycles today. Patient counseled regarding expected erythema and potential blister at sites of treatment. Verbal consent obtained b efore the procedure. Treated sites will be re-examined at the next clinic visit to ensure lesion resolution. The importance of sun protection was reviewed with the patient. - Discussed use of Efudex, butpatient declines - Patient was asked to call with any concerning changes to the areas treated today 4.Skin neoplasm - SK vs DN vs MM - Shave biopsy x 1sitecompleted today on the right dorsal forearm. Need for biopsy discussed along with details of procedures, risks, and potential complications (bleeding, scar, infection). All questions answered. Verbal consent obtained. Time out performed. The lesion(s) was cleansed w ithisopropyl alcoholand anesthetized with buffered 1% lidocaine with epinephrine. A sample ofthe lesion(s) was removed with a dermablade and sent to pathology. Hemostasis was obtained withaluminum chloride.Patient tolerated procedure well. Dressing was applied. Verbal and written wound care instructions given. Patient was informed that further procedure(s) or treatment(s) may be needed pending pathology results. Patient is instructed to call should any problems or concerns arise. - Will call patient with biopsy results. Per patient, ok to leave detailed message regarding results if no answer. 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 After reviewing risks of intralesional triamcinolone, performing time out (during which name, , and site were confirmed), the area wasprepped with alcohol swab and injectedwith Kenalog 5mg/mL, for total volume of 0.2ml.Discussed potential side effects including dyspigmentation and skin thinning.Patient verbalized understanding. Patient tolerated procedure well. RTC in 1 year, pending biopsy results, and also PRN Attestation The patient was evaluated independently with a physician immediately available as needed Problem List/Past Medical History Ongoing Acid reflux [...] tablet), 3.125 mg= 1 tab, PO, bid ezetimibe(ezetimibe 10 mg oral tablet), 10 mg= 1 tab, PO, Daily, 3 refills fluocinonide topical(fluocinonide 0.05% topical ointment), See [...] tablet), 40 mg= 1 tab, PO, Daily triamcinolone(Kenalog-10 injectable suspension), 5 mg= 0.5 mL, intralesional, ONCE triamcinolone topical(triamcinolone 0.1% topical cream), 1 appl, topical, bid unlisted medication(calcipotriene/5-FU), See Instructions Allergies PeridexUnknown acetaminophen-oxycodoneOther chlorhexidine topicalUnspecified, Swelling, Erythroderma caused by drug, Eruption, Itching Social History Smoking Status Never smoked cigarettes Family History Hypertension: Mother and Father. Health Status Family Member(s) Electronic Signature on File CC: Donovan Bartholomew MD [address] [place] [address] [address] [address] Electronically Reviewed/Signed by: Luz Marina Alfaro Author Signature Dt/Tm:08/15/2024 12:26 PM Department of Dermatology [place] Patient Care team information Care Team Personnel Name: MD Puma, Paula Herrera Position: Referring Member Role: Primary Care Provider Address: [facility] [address] [place] [address] [place] Name: Prince Hall Jason A Position: Pharmacist BCMA Member Role: Pharmacy - Lifetime Address: [place] [address] [place] Name: Prince Chacon Paula Position: Pharmacist Member Role: Pharmacy - Lifetime Address: [place] [address] [place] Care Team Related Persons Name: ELI FREEDMAN"
--- OUTSIDE RECORDS SUMMARY | 2024-10-06 13:07 | External Medical Summary ---
Author Name Unknown Address Unknown Organization K1C:[facility] [address] [place] [address] Laboratory Report Ordering Provider Test Date Status LORA NOBLES 07/25/2024 08:52 Final Observation Date Value Abnormality Reference (Units ) Status AST (Aspartate aminotransferase) 07/25/2024 16:16 18 3-42 (IU/L) Final Performing Location [facility] [address] [place] [address]
--- OUTSIDE RECORDS SUMMARY | 2024-10-06 13:07 | External Medical Summary | Continuity of Care Document ---
Author Name Unknown Organization [facility] Address [address] [place] [address] Phone [phone] Problems Active Problems Provider Date Essential hypertension Paula Bartholomew MD Ons et: 05/11/2018 Mixed hyperlipidemia Paula Bartholomew MD Onset : 05/11/2018 Carotid artery occlusion Paula Bartholomew MD O nset: 05/11/2018 Note: Document: 04/07/18 - C ardiology Consult Coronary atherosclerosis Paula Bartholomew MD O nset: 05/11/2018 Note: Document: 04/07/18 - C ardiology Consult Chronic kidney disease stage 3 Puala Bartholomew MD Onset: 05/11/2018 Localized, primary osteoarthritis [...] Never Smoked A Pipe Smoking Status Reviewed: 04/18/24 Never Smoked A Pipe Smokeless Tobacco 12/21/2022 [...] Qnty Indications Order ing Provider Date Rosuvastatin [id number] Tablets Take 1 Tablet Daily 90tabs Paula Bartholomew MD 12/13/2018 Triamterene/Hydrochl [id number] Tablets Take 1 Tablet Daily 90tabs Paula Bartholomew MD 06/28/2016 Aspir-Syp49fn Tablets 1 by mouth every day otc Paula Bartholomew MD 05/27/2015 Amlodipine Besylate/Benazepril Hydrochloride5-40mg Capsules Take 1 Capsule Daily 90caps I10 aPula Bartholomew MD 05/27/[address] Take 1 Tablet Daily 90tabs Paula Bartholomew MD 05/27/2015 Stool Pbaruzdj696mz Tablets 2 hs 60tabs Blake Beal DO Carvedilol3.125mg Tablets Take 1 Tablet Twice A Day Per Laundry Washer 180tabs I10 Paula Bartholomew MD Wrqnwqmlu69in Tablets 1 by mouth every day Unknown Medications Administered in Office Medication SIG Qnty Indications Ordering Provider Date Injection Dexamethasone Sodi um Phosphate, 1 MGInjection Oneil Mix MD 09/24/2019 Injection Dexamethasone Sodi um Phosphate, 1 MGInjection Blake Beal, DO 08/03/2016 Immunizations CPT Code Status Date Vaccine Lot # [id number] Given 10/10/2023 Influenza Vaccine High Do se 0.5ML Age 65 & > [id number] 72654 Given 09/10/2022 Influenza Vaccine High Do se 0.5ML Age 65 & > [id number] 87645 Given 08/20/2022 Moderna Sars-Co v-2 (Covid-19) Vaccine, BiValent Booster 12y+ 62040 Given 10/16/2021 Moderna Sars-Co v-2 (Cov-19) vacc,100 mcg/ 0.5 mL 12Y+EMR Doc Only 65305 Given 07/10/2021 Influenza Vaccine High Do se 0.5ML Age 65 & > [id number] 64968 Given 02/16/2021 Moderna Sars-Co v-2 (Cov-19) vacc,100 mcg/ 0.5 mL 12Y+EMR Doc Only 86681 Given 01/15/2021 Moderna Sars-Co v-2 (Cov-19) vacc,100 mcg/ 0.5 mL 12Y+EMR Doc Only 97844 Given 07/11/2020 Influenza Vaccine High Do se 0.5ML Age 65 & > [id number] 20407 Given 10/09/2019 Influenza Vacci ne, Inactivated, Subunit, Adjuvanted, For [facility] [id number] 74149 Given 06/25/2019 Shingrix 68415 Given 07/21/2018 Shingrix 33396 Given 07/19/2018 Influenza Vac, Split, Preservative Free High Dose Age 65 & > [id number] 42770 Given 07/29/2017 Influenza Vac, Split, Preservative Free High Dose Age 65 & > [id number] 71109 Given 08/03/2016 Influenza Vac, Split, Preservative Free High Dose Age 65 & > [id number] 17794 Given 09/12/2015 Influenza Vac, Split, Preservative Free High Dose Age 65 & > [id number] Given 09/12/2015 Influenza Vac, Split, Preservative Free High Dose Age 65 & > [id number] 52457 Given 09/02/2015 Pneumococcal Conjugate-Pr evnar 13 [id number] 40818 Given 06/14/2014 Pneumococcal Vaccine/Pneu movax 23 28858 Given 10/14/2011 Tdap (Tetanus, diphtheria & acel. pertussis) Adacel or Boostrix 10846 Given 01/20/2009 Zostavax Vaccine 76619 Given 12/10/2005 Td (Tetanus & D iphtheria) Decavac or Tenivac Age 7 & > Vital Signs Date Vital Result Comment 04/18/2024 7:51am BP Systolic 114 mmHg BP Diastolic 72 mmHg Body Temperature 97.5 F Heart Rate 66 /min Respiratory Rate 15 /min Weight 214.50 lb Weight 97.297 kg Height 69.75 inches 5'9.75" BMI (Body Mass Index) 31.0 kg/m2 [place] Body Weight 160 lb 01/13/2024 8:08am BP Systolic 118 mmHg BP Diastolic 80 mmHg Body Temperature 97.8 F Heart Rate 72 /min Respiratory Rate 16 /min Weight 217.25 lb Weight 98.545 kg Height 69.75 inches 5'9.75" BMI (Body Mass Index) 31.4 kg/m2 [place] Body Weight 160 lb Results Test Acquired Date Facility Test Result H/L Range N ote BMP 04/18/2024 [facility] [address] [place] [address] [phone] Glucose 108 mg/dL 70-110 1 BUN 27 mg/dL High 6-25 Creatinine 1.3 mg/dL 0.7-1.3 Sodium 140 mEq/L 135-145 Potassium 3.6 mEq/L 3.5-5.0 Chloride 99 mEq/L 95-107 Co-2 29 mEq/L 24-31 Calcium 10.0 mg/dL 8.5-10.6 GFR 57 ML/MIN/1.73SQM Low >60 Lipid 04/18/2024 [facility] [address] [place] [address] [phone] Cholesterol 116 mg/dL 0-200 2 Triglyceride 113 mg/dL 0-150 3 HDLD 52 mg/dL See Comment 4 Measured LDL 49 mg/dL 0-130 5 Calc VLDL 22.6 mg/dL See Comment 6 Chol/HDL 2.2 RATIO See Comment 7 Non-HDL 64 mg/dL See Comment 8 Laboratory test finding 04/18/2024 [facility] [address] [place] [address] [phone] Alt(SGPT) 22 IU/L 10-40 Ast(Sgot) 22 IU/L 3-42 Psa2 <0.05 ng/mL 0.0-4.0 PTH, Intact And Calcium 04/18/[address] [place] [address] [phone] Parathyroid Hormone, Intact 47 pg/mL Normal 16-77 9, 10 Calcium 9.8 mg/dL Normal 8.6-10.3 Laboratory test finding 04/18/[address] [place] [address] [phone] Clinical PDF Report [id number] SEE IMAGE BMP 01/13/2024 [facility] [address] [place] [address] [phone] Glucose 95 mg/dL 70-1 10 11 BUN 27 mg/dL High 6-25 Creatinine 1.4 mg/dL High 0.7-1.3 Sodium 140 mEq/L 135-145 Potassium 3.8 mEq/L 3.5-5.0 Chloride 98 mEq/L 95-107 Co-2 31 mEq/L 24-31 Calcium 9.9 mg/dL 8.5-10.6 GFR 53 ML/MIN/1.73SQM Low >60 Lipid 01/13/2024 [facility] [address] [place] [address] [phone] Cholesterol 114 mg/dL 0-200 12 Triglyceride 96 mg/dL 0-150 13 HDLD 57 mg/dL See Comment 14 Measured LDL 54 mg/dL 0-130 15 Calc VLDL 19.2 mg/dL See Comment 16 Chol/HDL 2.0 RATIO See Comment 17 Non-HDL 57 mg/dL See Comment 18 Laboratory test finding 01/13/2024 [facility] [address] [place] [address] [phone] Alt(SGPT) 20 IU/L 10-40 Ast(Sgot) 19 IU/L 3-42 Urine DIP (in office) Automate 01/13/2024 [facility] (In Office Test) Ua Glucose Negative Ua Bilirubin Negative Ua Ketones Negative Ua Specific [place] 1.020 Ua Blood Negative Ua PH 7.5 Ua Protein Negative Ua Urobilinogen 0.2 Ua Nitrite Negative Ua Leuko Negative 1 FASTING 2 CHOLESTEROL Less than 200mg/dl [...] 30mg/dl higher than LDL Target 9 FASTING FASTING: YES 10 Interpretive Guide I ntact PTH Calcium ------- Normal Parathyroid Normal Normal Hypoparathyroidism Low or Low Normal Low Hyperparathyroidism Primary Normal or High High Secondary High Normal or Low Tertiary High High Non-Parathyroid Hypercalcemia Low or Low Normal High 11 FASTING 12 CHOLESTEROL Less than 200mg/dl Low risk 201-239 mg/dl Borderline risk Equal to or greater 240mg/dl High risk 13 TRIGLYCERIDES Less than 150mg/dl Normal 150-199mg/dl Borderline 200-499mg/dl High Greater than 500mg/dl Very High 14 HDL <40mg/dl Elevated Risk 41-59mg/dl Risk >=60mg/dl Least Risk 15 LDL <100mg/dl Optimal 100-129mg/dl Near Optimal 130-159mg/dl Borderline High 160-189mg/dl High >=190 Very High 16 VLDL Less than 30mg/dl Normal 17 CHOL/HDL <4.0 Optimal 4.0-5.0 Borderline >6.0 High Risk 18 NON-HDL 30mg/dl higher than LDL Target Procedures Date Code Description Status 04/18/2024 61288 Remove Impacted Cerumen Comp leted 04/18/2024 29587 Venipuncture Routine Complet ed 04/18/2024 3078F PVRP Diastolic BP <80 mmHg C ompleted 04/18/2024 3074F PVRP Systolic BP <130 mmHg C ompleted 01/13/2024 57014 Venipuncture Routine Complet ed 01/13/2024 3079F PVRP Diastolic BP 80-89 MMHG Completed 01/13/2024 3074F PVRP Systolic BP <130 mmHg C ompleted 01/13/2024 1101F PT SCR Future Fall Risk, No Fall Or 1 W/Out Injury Completed 02/03/2022 28748863 Colonoscopy Completed Medical Devices Description No Information Available Encounters Type Date Location Provider Dx Diagnosis Office Visit 01/13/2024 8:00a [facility] Paula Bartholomew MD Z00.00 Encntr for general adult medical exam w/o abnormal findings N18.31 Chronic kidney disea se, stage 3a C61 Malignant neoplasm o f prostate I10 Essential (primary) hypertension E78.49 Other hyperlipidemia I25.10 Athscl heart disease of [place] coronary artery w/o ang pctrs Assessments Date Code Description Provider 04/18/2024 I10 Essential (primary) hyperten mac Bartholomew MD 04/18/2024 E78.49 Other hyperlipidemia Paula Bartholomew MD 04/18/2024 N18.31 Chronic kidney disease, stag e sharron Bartholomew MD 04/18/2024 H61.21 Impacted cerumen, right ear Paula Bartholomew MD 01/13/2024 Z00.00 Encounter for ge neral adult medical examination without abnormal findings Paula Bartholomew MD 01/13/2024 N18.31 Chronic kidney disease, stag e sharron Bartholomew MD 01/13/2024 C61 Malignant neoplasm of prosta te Paula Bartholomew MD 01/13/2024 I10 Essential (primary) hyperten mac Bartholomew MD 01/13/2024 E78.49 Other hyperlipidemia Paula Bartholomew MD 01/13/2024 I25.10 Atherosclerotic heart disease of [place] coronary artery without angina pectoris Paula Bartholomew MD Plan of Treatment Future Appointment(s):* 07/25/2024 8:15 am - Paula Bartholomew MD at [facility] 04/18/2024 - Paula Bartholomew MD* I10 Essential (primary) hypertension* Follow up:* Followup in three months. * Recommendations:* Low-salt diet. Exercise. * E78.49 Other hyperlipidemia* Comments:* Continue current medication regimen. * Follow up:* Followup in three months with fasting labs. * N18.31 Chronic kidney disease, stage 3a* Comments:* stable-has not seen nephrology is awhile * Recommendations:* will check PTH to rule out secondary hyperparathyroidism of renal origin * H61.21 Impacted cerumen, right ear Functional Status Functional Condition Comment Date Status Glasses Active Mental Status Description No Information Available Referrals Description No Information Available
--- OUTSIDE RECORDS SUMMARY | 2024-10-06 13:08 | External Medical Summary ---
Author Name Unknown Address Unknown Organization K1C:[facility] [address] [place] [address] Laboratory Report Ordering Provider Test Date Status LORA NOBLES 04/18/2024 08:44 Final Observation Date Value Abnormality Reference (Units ) Status ALT (Alanine aminotransferase) 04/18/2024 16:21 22 10-40 (IU/L) Final Performing Location [facility] [address] [place] [address]
--- OUTSIDE RECORDS SUMMARY | 2024-10-06 13:08 | External Medical Summary ---
Author Name Unknown Address Unknown Organization K1C:[facility] [address] [place] [address] Laboratory Report Ordering Provider Test Date Status LORA NOBLES 04/18/2024 08:44 Final Observation Date Value Abnormality Reference (Units ) Status AST (Aspartate aminotransferase) 04/18/2024 16:21 22 3-42 (IU/L) Final Performing Location [facility] [address] [place] [address]
--- OUTSIDE RECORDS SUMMARY | 2024-10-06 13:08 | External Medical Summary ---
Author Name Unknown Address Unknown Organization [facility]:[address] [place] [address] Laboratory Report Ordering Provider Test Date Status MALLORIELORA 04/18/2024 08:44 Final Observation Date Value Abnormality Reference (Units ) Status Cholesterol 04/18/2024 16:21 116 0-200 (MG/D L) Final CHOLESTEROL
Less than 2 00mg/dl Low risk
201-239 mg/dl Borderline risk
Equal to or greater 240mg/dl High risk Triglyceride 04/18/2024 16:21 113 0-150 (MG/ DL) Final TRIGLYCERIDES
Less than 150mg/dl Normal
150-199mg/dl Borderline
200-499mg/dl High
Greater than 500mg/dl Very High HDL 04/18/2024 16:21 52 SEE COMMENT ( MG/DL) Final HDL
<40mg/dl Elevated R isk
41-59mg/dl Risk
>=60mg/dl Least Risk Cholesterol in LDL [Mass/vol ume] in Serum or Plasma 04/18/2024 16:21 49 0-130 (MG/DL) Final LDL
<100mg/dl Optimal<b r/> 100-129mg/dl Near Optimal
130-159mg/dl Borderline High
160-189mg/dl High
>=190 Very High Cholesterol in VLDL [Mass/vo lume] in Serum or Plasma 04/18/2024 16:21 22.6 SEE COMMENT (MG/DL ) Final VLDL
Less than 30mg/dl Normal HDL 04/18/2024 16:21 2.2 SEE COMMENT ( RATIO) Final CHOL/HDL
<4.0 Optimal<b r/> 4.0-5.0 Borderline
>6.0 High Risk NON-HDL 04/18/2024 16:21 64 SEE COMMENT ( MG/DL) Final NON-HDL
30mg/dl higher than LDL Target Performing Location [facility] [address] [place] [address]
--- OUTSIDE RECORDS SUMMARY | 2024-10-06 13:08 | External Medical Summary ---
Author Name Unknown Address Unknown Organization [facility] [address] [place] [id number] Laboratory Report Ordering Provider Test Date Status MALLORIE,LORA 04/18/2024 08:44 Final Observation Date Value Abnormality Reference (Units ) Status Glucose 04/18/2024 16:21 108 70-110 (MG/DL ) Final BUN 04/18/2024 16:21 27 Above high normal 6-25 (MG/DL) Final Creatinine 04/18/2024 16:21 1.3 0.7-1.3 (MG/ DL) Final Sodium 04/18/2024 16:21 140 135-145 (MEQ/ L) Final Potassium 04/18/2024 16:21 3.6 3.5-5.0 (MEQ/ L) Final Cl 04/18/2024 16:21 99 95-107 (MEQ/L ) Final CO2 04/18/2024 16:21 29 24-31 (MEQ/L) Final Calcium 04/18/2024 16:21 10.0 8.5-10.6 (MG/ DL) Final GFR (estimated) 04/18/2024 16:21 57 Below low normal >60 (ML/MIN/1.73 SQM) Final Performing Location [facility] [address] [place] [id number]
--- OUTSIDE RECORDS SUMMARY | 2024-10-06 13:08 | External Medical Summary | Continuity of Care Document ---
Author Name Unknown Organization [facility] Address [address] [place] [address] Phone [phone] Problems Active Problems Provider Date Essential hypertension [...] Qnty Indications Order ing Provider Date Rosuvastatin [id number] Tablets Take 1 Tablet Daily 90tabs Paula Bartholomew MD 12/13/2018 Triamterene/Hydrochl jahhdesaody75-93rt Tablets Take 1 Tablet Daily 90tabs Paula Bartholomew MD 06/28/2016 Aspir-Vnv03ie Tablets 1 by mouth every day otc Paula Bartholomew MD 05/27/2015 Amlodipine Besylate/Benazepril Hydrochloride5-40mg Capsules Take 1 Capsule Daily 90caps I10 Paula Bartholomew MD 05/27/[address] Take 1 Tablet Daily 90tabs Paula Bartholomew MD 05/27/2015 Stool Sgdphdny159bk Tablets 2 hs 60tabs Blake Beal DO Carvedilol3.125mg Tablets Take 1 Tablet Twice A Day Per Buttermaker 180tabs I10 Paula Bartholomew MD Nkarkrtgc65ia Tablets 1 by mouth every day Unknown Medications Administered in Office Medication SIG Qnty Indications Ordering Provider Date Injection Dexamethasone Sodi um Phosphate, 1 MGInjection Oneil Mix MD 09/24/2019 Injection Dexamethasone Sodi um Phosphate, 1 MGInjection Blake Beal, DO 08/03/2016 Immunizations CPT Code Status Date Vaccine Lot # [id number] Given 10/10/2023 Influenza Vaccine High Do se 0.5ML Age 65 & > [id number] 55880 Given 09/10/2022 Influenza Vaccine High Do se 0.5ML Age 65 & > [id number] 99826 Given 08/20/2022 Moderna Sars-Co v-2 (Covid-19) Vaccine, BiValent Booster 12y+ 74939 Given 10/16/2021 Moderna Sars-Co v-2 (Cov-19) vacc,100 mcg/ 0.5 mL 12Y+EMR Doc Only 61209 Given 07/10/2021 Influenza Vaccine High Do se 0.5ML Age 65 & > [id number] 61452 Given 02/16/2021 Moderna Sars-Co v-2 (Cov-19) vacc,100 mcg/ 0.5 mL 12Y+EMR Doc Only 45506 Given 01/15/2021 Moderna Sars-Co v-2 (Cov-19) vacc,100 mcg/ 0.5 mL 12Y+EMR Doc Only 33924 Given 07/11/2020 Influenza Vaccine High Do se 0.5ML Age 65 & > [id number] 48631 Given 10/09/2019 Influenza Vacci ne, Inactivated, Subunit, Adjuvanted, For [facility] [id number] 59456 Given 06/25/2019 Shingrix 13521 Given 07/21/2018 Shingrix 58174 Given 07/19/2018 Influenza Vac, Split, Preservative Free High Dose Age 65 & > [id number] 05024 Given 07/29/2017 Influenza Vac, Split, Preservative Free High Dose Age 65 & > [id number] 18762 Given 08/03/2016 Influenza Vac, Split, Preservative Free High Dose Age 65 & > [id number] 02447 Given 09/12/2015 Influenza Vac, Split, Preservative Free High Dose Age 65 & > [id number] Given 09/12/2015 Influenza Vac, Split, Preservative Free High Dose Age 65 & > [id number] 79818 Given 09/02/2015 Pneumococcal Conjugate-Pr evnar 13 [id number] 99659 Given 06/14/2014 Pneumococcal Vaccine/Pneu movax 23 87931 Given 10/14/2011 Tdap (Tetanus, diphtheria & acel. pertussis) Adacel or Boostrix 69478 Given 01/20/2009 Zostavax Vaccine 83880 Given 12/10/2005 Td (Tetanus & D iphtheria) Decavac or Tenivac Age 7 & > Vital Signs Date Vital Result Comment 04/18/2024 7:51am BP Systolic 114 mmHg BP Diastolic 72 mmHg Body Temperature 97.5 F Heart Rate 66 /min Respiratory Rate 15 /min Weight 214.50 lb Weight 97.297 kg Height 69.75 inches 5'9.75" BMI (Body Mass Index) 31.0 kg/m2 [place] Body Weight 160 lb 01/13/2024 8:08am BP Systolic 118 mmHg BP Diastolic 80 mmHg Body Temperature 97.8 F Heart Rate 72 /min Respiratory Rate 16 /min Weight 217.25 lb Weight 98.545 kg Height 69.75 inches 5'9.75" BMI (Body Mass Index) 31.4 kg/m2 [place] Body Weight 160 lb Results Test Acquired Date Facility Test Result H/L Range N ote BMP 04/18/2024 [facility] [address] [place] [address] [phone] Glucose 108 mg/dL 70-110 1 BUN 27 mg/dL High 6-25 Creatinine 1.3 mg/dL 0.7-1.3 Sodium 140 mEq/L 135-145 Potassium 3.6 mEq/L 3.5-5.0 Chloride 99 mEq/L 95-107 Co-2 29 mEq/L 24-31 Calcium 10.0 mg/dL 8.5-10.6 GFR 57 ML/MIN/1.73SQM Low >60 Lipid 04/18/2024 [facility] [address] [place] [address] [phone] Cholesterol 116 mg/dL 0-200 2 Triglyceride 113 mg/dL 0-150 3 HDLD 52 mg/dL See Comment 4 Measured LDL 49 mg/dL 0-130 5 Calc VLDL 22.6 mg/dL See Comment 6 Chol/HDL 2.2 RATIO See Comment 7 Non-HDL 64 mg/dL See Comment 8 Laboratory test finding 04/18/2024 [facility] [address] [place] [address] [phone] Alt(SGPT) 22 IU/L 10-40 Ast(Sgot) 22 IU/L 3-42 Psa2 <0.05 ng/mL 0.0-4.0 PTH, Intact And Calcium 04/18/[address] [place] [address] [phone] Parathyroid Hormone, Intact 47 pg/mL Normal 16-77 9, 10 Calcium 9.8 mg/dL Normal 8.6-10.3 Laboratory test finding 04/18/[address] [place] [address] [phone] Clinical PDF Report [id number] SEE IMAGE BMP 01/13/2024 [facility] [address] [place] [address] [phone] Glucose 95 mg/dL 70-1 10 11 BUN 27 mg/dL High 6-25 Creatinine 1.4 mg/dL High 0.7-1.3 Sodium 140 mEq/L 135-145 Potassium 3.8 mEq/L 3.5-5.0 Chloride 98 mEq/L 95-107 Co-2 31 mEq/L 24-31 Calcium 9.9 mg/dL 8.5-10.6 GFR 53 ML/MIN/1.73SQM Low >60 Lipid 01/13/2024 [facility] [address] [place] [address] [phone] Cholesterol 114 mg/dL 0-200 12 Triglyceride 96 mg/dL 0-150 13 HDLD 57 mg/dL See Comment 14 Measured LDL 54 mg/dL 0-130 15 Calc VLDL 19.2 mg/dL See Comment 16 Chol/HDL 2.0 RATIO See Comment 17 Non-HDL 57 mg/dL See Comment 18 Laboratory test finding 01/13/2024 [facility] [address] [place] [address] [phone] Alt(SGPT) 20 IU/L 10-40 Ast(Sgot) 19 IU/L 3-42 Urine DIP (in office) Automate 01/13/2024 [facility] (In Office Test) Ua Glucose Negative Ua Bilirubin Negative Ua Ketones Negative Ua Specific [place] 1.020 Ua Blood Negative Ua PH 7.5 [...] Target Procedures Date Code Description Status 04/18/2024 41022 Remove Impacted Cerumen Comp leted 04/18/2024 30253 Venipuncture Routine Complet ed 04/18/2024 3078F PVRP Diastolic BP <80 mmHg C ompleted 04/18/2024 3074F PVRP Systolic BP <130 mmHg C ompleted 01/13/2024 59338 Venipuncture Routine Complet ed 01/13/2024 3079F PVRP Diastolic BP 80-89 MMHG Completed 01/13/2024 3074F PVRP Systolic BP <130 mmHg C ompleted 01/13/2024 1101F PT SCR Future Fall Risk, No Fall Or 1 W/Out Injury Completed 02/03/2022 [id number] Colonoscopy Completed Medical Devices Description No Information Available Encounters Type Date Location Provider Dx Diagnosis Office Visit 01/13/2024 8:00a [facility] Paula Bartholomew MD Z00.00 Encntr for general adult medical exam w/o abnormal findings N18.31 Chronic kidney disea se, stage 3a C61 Malignant neoplasm o f prostate I10 Essential (primary) hypertension E78.49 Other hyperlipidemia 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
== END 2024-10-05 14:24 | disposition home or self-care (01) ==
LOC: 4W 21:28 → ED 21:28 → SUATTDRO 10-05 00:33 → 4W 10-05 01:47